=== PATIENT | male | born 1975 | race Caucasian/White ===

== ENCOUNTER 2018-08-06 17:20 | Day surgery (SDC) | payer OTHER, SELFPAY ==
[2018-08-06] VITALS (9 sets, daily range): BP systolic 116–131; BP diastolic 71–93; PULSE 80–98; RESP 14–17; TEMP 36.3–36.9; O2SAT 95–99; BMI 32.6; BMI 32.7
--- NOTE | 2018-08-06 17:40 | CT_ITS ---
STUDY: CT ABDOMEN AND PELVIS WITH CONTRAST REASON FOR EXAM: Male, 43 years old. Right lower quadrant pain. RADIATION DOSAGE (If Supplied By Facility): CTDIvol = ( 17.80 ) mGy, DLP = ( 1233.06 ) mGycm TECHNIQUE: Transaxial images were obtained from the dome of the diaphragm to the symphysis pubis without oral contrast. 100ML ml of Isovue 300 contrast was administered. Sagittal and coronal images were reconstructed. Individualized dose optimization techniques were used for this CT. COMPARISON: February 19, 2005 FINDINGS: The visualized lung bases are unremarkable. The visualized portions of the heart are within normal limits. Normal liver. Normal gallbladder and extrahepatic biliary system. Normal spleen. Normal pancreas. Normal bilateral adrenal glands. Normal right kidney. Normal left kidney. Normal visualized stomach. Normal small intestine. Normal colon. There is a tubular, thick-walled appendix (>7mm), consistent with acute appendicitis. Normal abdominal aorta. Normal inferior vena cava. Normal retroperitoneum. Normal urinary bladder. Normal abdominal wall. Normal osseous structures. CT/Abdomen/Pelvis WITH Contrast IMPRESSION: Acute appendicitis. Electronically Signed: Shannan Lopez MD at 19:37 EST Tel , Service support ,
[2018-08-06] MEDS: 0.9% Normal Saline 1,000 ML 150 ML IV (17:50)
[2018-08-06 18:01] LABS: Absolute Lymphocyte Count 1.38 X10^3/ul (0.83-4.51); Absolute Neutrophil Count 4.8 X10^3/uL (2.0-7.7); Basophil# 0.01 X10^3/uL; Basophil% 0.1 % (0-1); Eosinophil# 0.07 X10^3/uL; Hematocrit 42.5 % (40-54); Hemoglobin 14.5 g/dl (13.0-16.5); Lymphocyte # 1.38 X10^3/ul (4.0); Lymphocyte % 19.1 % (19-41); Mean Corp Hgb Conc 34.1 g/gl (32-36); Mean Corpuscular Hgb 30.1 pg (27.0-32.0); Mean Corpuscular Volume 88.2 fL (80-94); Mean Platelet Vol. 8.9 fl (6.2-12.0); Monocyte# 0.97 X10^3/uL; Monocyte% 13.4 % (0-10); Neutrophil # 4.76 X10^3/uL (2.7-7.7); POSITIVE COUNT NO; POSITIVE DIFFERENTIAL NO; POSITIVE MORPHOLOGY NO; Platelet Count 160 K/mm3 (150-450); RBC Distribution Width CV 12.6 % (11.6-14.6); RBC Distribution Width SD 40.5 fl (35.1-43.9); Red Blood Count 4.82 M/mm3 (4.6-6.2); White Blood Count 7.2 K/mm3 (4.4-11.0)
[2018-08-06 18:21] LABS: Anion Gap 10 (5-15); BUN 23 mg/dL (7-18); BUN/Creat Ratio 21.7 RATIO (10-20); Calcium,Total 8.5 mg/dL (8.5-10.1); Chloride 106 mmol/L (98-107); Creatinine, Serum 1.06 mg/dL (0.70-1.30); EST Glomerular Filtration Rate 80 mL/min (>60); Est Glom Filt Rate - Afr Amer 97 mL/min (>60); Estimated Creatinine Clearance 85.14 ml/min; Glucose 87 mg/dL (74-106); Potassium 3.6 mmol/L (3.5-5.1); Sodium Level 138 mmol/L (136-145)
--- NOTE | 2018-08-06 18:30 | ED.DCSUM_ITS ---
- ER Visit Summary Date of Service: 08/06/18 Chief Complaint: Right lower quadrant pain History of Present Illness: The patient is a 43 M with generalized abdominal pain last evening that is now localized to the right lower quadrant. He had subjective mild fever today. No urinary symptoms. He reports feeling like he needed to have a bowel movement last night but was unable to. He was able to have 2 small bowel movements this morning. He denies any prior abdominal surgeries. Physical Examination: Vital signs unremarkable. Patient is afebrile. Head neck examination normal. Heart is regular rate and rhythm. Lungs sounds are clear. Abdomen is soft with tenderness in the right lower quadrant. No guarding or rebound. Hypoactive bowel sounds noted. Test Results: CBC and chemistry studies are significant only for BUN of 23. Urinalysis is remarkable only for ketones. CT abdomen pelvis with contrast reveals acute appendicitis. Emergency Department Course and Treatment: Patient is given IV fluids. He decli sylvain anything for pain at this time. Test results are discussed with patient and at bedside. He is given a dose of Zosyn. I spoke with Dr. Morris he will be in to see the patient. Treatment Plan: [] Disposition: Admit Impression: Acute appendicitis This note was generated with [employer] dictation software. It may contain incorrect words, spelling, and punctuation that were not noted in review of the chart prior to signing ED Disposition - Plan for ED Patient: Chief Complaint: Abd Pain Referrals: Leonidas Begum DO [Primary Care Provider] -
[2018-08-06 18:44] LABS: Bacteria 0 SEEN /hpf (None Seen); Mucous, Urine 0 SEEN /hpf (<or=2+); Red Blood Cells-Urine 0 SEEN /hpf (0-5); Squamous Epithelial Cells - UA 0 SEEN /hpf (0-5); White Blood Cells 0 SEEN /hpf (0-5)
[2018-08-06 18:54] LABS: Color, Urine Yellow (Yellow); Glucose, Dipstick Normal (Normal); Ketone-Dipstick 50 mg/dl (Negative); Leukocyte Esterase-Dipstick Negative /ul (Negative); Nitrite-Dipstick Negative (Negative); Occult Blood-Urine Negative /ul (Negative); Protein-Dipstick Negative (Negative); Urine Bilirubin Dipstick Negative (Negative); Urine Clarity Clear (Clear); Urine Urobilinogen Normal (Normal)
[2018-08-06 19:05] LABS: Transitional Epithelial - Ur 0-5 SEEN /hpf (0-5)
--- NOTE | 2018-08-06 20:20 | PCM.HP.STD ---
Problem List (1) Acute appendicitis Status: Acute Qualifiers: Acute appendicitis type: with localized peritonitis Appendicitis gangrene presence: without gangrene Appendicitis perforation presence: without perforation Appendicitis abscess presence: without abscess Qualified Code(s): K35.30 - Acute appendicitis with localized peritonitis, without perforation or gangrene History of Present Illness Date of Admission: 08/06/18 The patient is a 43 year old M who presented to the emergency department this afternoon. Abdominal pain started last night periumbilical that then localized to the right lower quadrant. He describes it is minor in nature increasing though. Worse pain when he is standing and coughing while he is standing mild when he is just lying down. He has had subjective fevers at home. He has had no urinary symptoms. He had 2 bowel movements this morning. Laboratory values showed normal white cell blood count normal urinalysis CAT scan of the abdomen was performed findings: Normal visualized stomach. Normal small intestine. Normal colon. There is a tubular, thick-walled appendix (>7mm), consistent with acute appendicitis. I been consulted for evaluation and treatment of acute appendicitis. Past Medical History Medical History: Medical History (Last Updated 08/06/18 @ 20:23 by Vince Morris MD) GERD (gastroesophageal reflux disease) K21.9 Allergies No Known Allergies Allergy (Verified 08/06/18 17:20) Home Medications: Ambulatory Orders Medication Instructions Recorded Cetirizine HCl [Zyrtec] 10 mg PO DAILY 08/06/18 Esomeprazole Mag Trihydrate 20 mg PO DAILY 08/06/18 [Nexium] Psyllium Husk (with Sugar) 575 gm PO MOTUWETHFR 08/06/18 [Metamucil Powder] Smoking Status: Never smoker - *Family History Maternal History Items: No pertinent history Review of Systems Constitutional: Reports: Chills, Fever Cardiovascular: Denies: Chest Pain, Chest Pressure, Chest Tightness, Palpitations Respiratory: Denies: Cough, Hemoptysis, Shortness of breath at rest, Shortness of breath upon exertion, Wheezing Gastrointestinal: Reports: Abdominal Pain. Denies: Diarrhea, Nausea, Vomiting Genitourinary: Denies: Dysuria, Frequency, Hematuria, Urgency Musculoskeletal: Denies: Joint Pain Psychiatric: Denies: Anxiety, Depression Endocrine: Denies: Heat/ Cold Intolerance, Polydipsia, Polyuria Hematologic/ Lymphatic: Denies: Adenopathy, Easy Bruising VTE Information - Inpt Only VTE Present on Admission: No VTE Mechan Device Prophylaxis: SCD's VTE Pharm Prophylaxis ordered?: No Reason prophylaxis not ordered:: Treatment Not Indicated Patient Problems: Active and Suspected Problems Acute appendicitis (Acute) - Physical Exam General: Alert, Oriented x3 HEENT: Atraumatic, PERRLA, EOMI, Normocephalic Neck: Supple, No JVD Lungs: Clear to auscultation Cardiovascular: Regular rate, Regular Rhythm, No murmurs Abdomen: Soft, Tender - Patient has tenderness in the right lower quadrant with minor rebound. He has a negative Rovsing sign Extremities: No clubbing, No cyanosis, No edema Skin: No rashes, No breakdown Musculoskeletal: No Tenderness to Palpation of Joints or Extremities Vital Signs Temp Pulse Resp BP Pulse Ox 98.3 F 80 16 122/85 H 98 08/06/18 20:03 08/06/18 20:03 08/06/18 20:03 08/06/18 20:03 08/06/18 20:03 Oxygen Delivery Method Room Air Weight: 215 lb Body Mass Index (BMI) 32.6 Laboratory Tests Past 24 Hrs 08/06/18 08/06/18 08/06/18 17:50 17:50 18:35 WBC 7.2 RBC 4.82 Hgb 14.5 Hct 42.5 MCV 88.2 MCH 30.1 MCHC 34.1 RDW 12.6 RDW Differential 40.5 Plt Count 160 MPV 8.9 Immature Gran % (Auto) 0.400 Neut % (Auto) 66.0 Lymph % (Auto) 19.1 [place] % (Auto) 13.4 H Eos % (Auto) 1.0 Baso % (Auto) 0.1 Absolute Neuts (auto) 4.8 Absolute Lymphs (auto) 1.38 Total Counted Not Reportable Sodium 138 Potassium 3.6 Chloride 106 Carbon Dioxide 22.0 Anion Gap 10 BUN 23 H Creatinine 1.06 Estim Creat Clear Calc 85.14 Est GFR (MDRD) Af Amer 97 Est GFR (MDRD) Non-Af 80 BUN/Creatinine Ratio 21.7 H Glucose 87 Calcium 8.5 Urine Color Yellow Urine Clarity Clear Urine pH 6.0 Ur Specific [place] 1.020 Urine Protein Negative Urine Glucose (UA) Normal Urine Ketones 50 H Urine Occult Blood Negative Urine Nitrite Negative Urine Bilirubin Negative Urine Urobilinogen Normal Ur Leukocyte Esterase Negative Urine RBC 0 SEEN Urine WBC 0 SEEN Ur Squamous Epith Cells 0 SEEN Ur Transition Epith Cell 0-5 SEEN Urine Bacteria 0 SEEN Urine Mucus 0 SEEN Assessment/Plan All Active Problems Acute appendicitis (Acute) My plan is to perform a laparoscopic appendectomy on the patient. Risk and benefits were reviewed with him as well as the nurses that were in the room. Bleeding infection was obviously the 2 largest one injury to surrounding structures and possible delayed abscesses were also discussed. We briefly touched upon anesthetic risks to include blood clots heart attacks pneumonias and strokes. All questions asked were answered. He is willing to proceed.
--- NOTE | 2018-08-06 21:35 | OP.PCM_ITS ---
Problem List (1) Acute appendicitis Status: Acute Qualifiers: Acute appendicitis type: with localized peritonitis Appendicitis gangrene presence: without gangrene Appendicitis perforation presence: without perforation Appendicitis abscess presence: without abscess Qualified Code(s): K35.30 - Acute appendicitis with localized peritonitis, without perforation or gangrene Report of Operation Date of Procedure: 08/06/18 Pre-Operative Diagnosis: Acute appendicitis Post-Operative Diagnosis: Same Surgery/Procedure Performed:: Laparoscopic appendectomy Type of Anesthesia:: General Anesthesiologist: Price Queen Estimated Blood Loss (mL): < 25 cc Description of Procedure: Patient was brought into the operating room. Placed in the supine position. Under excellent general endotracheal intubation the abdomen was sterilely prepped and draped in the usual fashion. Local was injected infraumbilically. Dissection was carried down to the fascia. Fascia was grasped with [place]. Varies needle was placed inside the abdomen. The abdomen was insufflated to 15 torr. A 10/12 trocar was placed without difficulty. Patient was placed in the headdown and rotated to the left suprapubic #5 trocar was placed in the left lower quadrant #5 trocar was placed. Both of these under direct visualization without injury to underlying structures nor the bladder. Patient was noted to have a retrocecal appendix I had to mobilize the terminal ileum off of the sidewall of the pelvis. Once this was done I was able to grab the appendix and then come across the mesoappendix with the Enseal. I had good hemostasis. I then transected the appendix with a 45 linear cutter. I placed a specimen a specimen bag delivered through the umbilical port without difficulty. Once this was completed I reinflated the abdomen inspected the right lower quadrant and the base of the appendix and the mesoappendix I had good hemostasis and no active bleeding was identified. I retrieved all the irrigant in the right upper quadrant and in the pelvis area no pus was identified. I did not run the small bowel given the fact that he had acute appendicitis. I removed the trochars under direct visualization. Good hemostasis was noted I closed the fascia the umbilical port with a [id number] stitch of 0 Vicryl. Skin incisions were closed with subtalar stitches of 4-0 Monocryl. Steri-Strips are applied sterile dressings were applied and the patient tolerated the procedure well. - Admit VTE Documentation VTE Present on Admission: No VTE Mechan Device Prophylaxis: SCD's VTE Pharm Prophylaxis ordered?: No Reason prophylaxis not ordered:: Treatment Not Indicated
[2018-08-06] MEDS: Bupivacaine Mpf 0.5% 30 ML VIAL (21:48)
[2018-08-06] MEDS: Lactated Ringers 1,000 ML 125 ML IV (23:30)
--- NOTE | 2018-08-07 | APP_PTH ---
PATIENT: CAROLYN VÁSQUEZ Jr. [place] [facility] [place][id number] AGE/SX: 43/M ROOM: RE08/06/[address]: Dr. Vince Morris MD : 1975 BED: DIS: 08/07/2018 SPEC #: [id number] RECD: 08/07/18 13:05 STATUS: CHA TIGIST #: [id number] MARTÍNEZ: 08/07/18 00:[address]: Vince Morris DEPT: SURGICAL PATHOLOGY RECD BY: Javier Vazquez ENTERED: 08/07/18 13:05 SP TYPE: APPENDIX OTHR DR: Dr. Leonidas Begum DO Tissues: Appendix, NOS Procedures: Surgery Specimen Level III HEADER OPERATION: Laparoscopic appendectomy PRE-OP DIAGNOSIS: Acute appendicitis TISSUE SUBMITTED: Appendix MICROSCOPIC DIAGNOSIS Appendix, appendectomy: Acute appendicitis. Acute serositis. AM:ramonita 08/10/18 MICROSCOPIC DESCRIPTION Slides are reviewed. GROSS DESCRIPTION Received is one container labeled with the patient's name and designated appendix. The specimen consists of a vermiform appendix measuring 7 cm in length and 0.8 cm in average diameter. No gross perforations are evident. Serial sections reveal a patent lumen. Analytics Architect sections are submitted in one cassette. / AM:ramonita 08/07/18 TC:2 CPT: 10807
[2018-08-07] MEDS: HYDROmorphone 1 MG/ML Syringe IV (00:04)
[2018-08-07 01:29] VITALS: BP 124/71; PULSE 97; RESP 16; TEMP 36.6; O2SAT 96
[2018-08-07 03:21] VITALS: BP 116/67; PULSE 86; RESP 16; TEMP 36.6; O2SAT 95
[2018-08-07] MEDS: Piperacil/Tazobactam 3.375 GM/50 ML ML IV ×2 (05:37→14:28)
[2018-08-07] MEDS: HYDROcodone Bitartrate/Apap 5/325 Tablet PO ×2 (06:24→12:52)
[2018-08-07] MEDS: Lactated Ringers 1,000 ML 125 ML IV (07:11)
[2018-08-07 10:00] VITALS: BP 115/67; PULSE 79; RESP 18; TEMP 37.1; O2SAT 95
[2018-08-07 11:18] VITALS: O2SAT 96
--- NOTE | 2018-08-07 11:19 | CPS ---
STARTED BY NURSING
--- NOTE | 2018-08-07 13:08 | DCINST_ITS ---
Discharge Diet: Light diet - advance as tolerated - if you have questions about your diet instructions, please talk to you doctor. Discharge Activity: May Not Drive - for 3-5 days or while taking narcotic pain meds. May shower in (days): 1 Call your doctor if your incision/area has: Continuous Slow Oozing, Sudden Increased Bleeding, Increased Pain/ Swelling, Increased Redness, Foul Smelling Discharge Call your doctor if you observe: Fever of 101 or Higher Suture Line Care: Avoid Pulling/Pushing, Avoid Pinching/Bending Additional Dressing/Incision Instructions:: Keep dressing clean and dry. Change or remove dressing in 2 days. Leave steri strips for 1 week. May protect with a gauze bandaid. Medications to take at Discharge Cetirizine HCl [Zyrtec] 10 mg PO DAILY 08/06/18 Esomeprazole Mag Trihydrate [Nexium] 20 mg PO DAILY 08/06/18 Guaifenesin [Mucinex] 600 mg PO DAILY 08/06/18 Psyllium Husk (with Sugar) [Metamucil Powder] 575 gm PO MOTUWETHFR 08/06/18 Allergies/Adverse Reactions: Allergies No Known Allergies Allergy (Verified 08/06/18 17:20) Primary Care Physician: Leonidas Begum DO [Primary Care Provider] - Test Results: Test results from this visit will be discussed in further detail at your follow- up appointment, if applicable. Please Follow Up With: Vince Morris MD - [phone] When: Call to make a follow up appointment with your doctor in 1 week.
--- NOTE | 2018-08-07 13:09 | PCM.PN.SRG ---
Patient Problems: Active and Suspected Problems (Last Updated 08/06/18 @ 20:23 by Vince Morris MD) Acute appendicitis (Acute) Subjective: Pain is controlled with oral pain medication. He is not complaining of the same abdominal pain only incisional pain at this time. Objective: Dressings are dry. Abdomen is soft. - Physical Exam Vital Signs Temp Pulse Resp BP Pulse Ox 98.7 F 79 18 115/67 96 08/07/18 10:00 08/07/18 10:00 08/07/18 10:00 08/07/18 10:00 08/07/18 11:18 Oxygen Delivery Method Room Air Weight: 215 lb Body Mass Index (BMI) 32.6 Intake and Output for Last 24 Hours 08/05/18 08/06/18 08/07/18 23:59 23:59 23:59 Intake Total 850 / 850 995 / 995 Output Total 1200 / 1200 Balance 850 / 850 -205 / -205 Laboratory Tests Past 24 Hrs 08/06/18 08/06/18 08/06/18 17:50 17:50 18:35 WBC 7.2 RBC 4.82 Hgb 14.5 Hct 42.5 MCV 88.2 MCH 30.1 MCHC 34.1 RDW 12.6 RDW Differential 40.5 Plt Count 160 MPV 8.9 Immature Gran % (Auto) 0.400 Neut % (Auto) 66.0 Lymph % (Auto) 19.1 [place] % (Auto) 13.4 H Eos % (Auto) 1.0 Baso % (Auto) 0.1 Absolute Neuts (auto) 4.8 Absolute Lymphs (auto) 1.38 Total Counted Not Reportable Sodium 138 Potassium 3.6 Chloride 106 Carbon Dioxide 22.0 Anion Gap 10 BUN 23 H Creatinine 1.06 Estim Creat Clear Calc 85.14 Est GFR (MDRD) Af Amer 97 Est GFR (MDRD) Non-Af 80 BUN/Creatinine Ratio 21.7 H Glucose 87 Calcium 8.5 Urine Color Yellow Urine Clarity Clear Urine pH 6.0 Ur Specific [place] 1.020 Urine Protein Negative Urine Glucose (UA) Normal Urine Ketones 50 H Urine Occult Blood Negative Urine Nitrite Negative Urine Bilirubin Negative Urine Urobilinogen Normal Ur Leukocyte Esterase Negative Urine RBC 0 SEEN Urine WBC 0 SEEN Ur Squamous Epith Cells 0 SEEN Ur Transition Epith Cell 0-5 SEEN Urine Bacteria 0 SEEN Urine Mucus 0 SEEN Medical Necessity - Tobacco Use Smoking Status: Former smoker Assessment/Plan All Active Problems (Last Updated 08/06/18 @ 20:23 by Vince Morris MD) Acute appendicitis (Acute) My plan is to discharge the patient home today
[2018-08-07 15:15] VITALS: BP 119/77; PULSE 78; RESP 16; TEMP 36.9; O2SAT 93
== END 2018-08-07 15:51 | disposition home or self-care (01) ==
LOC: ED 18:30 → SDC 20:12 → MS3 20:18
PROVIDERS: Emergency Provider Emergency Medicine; Family Provider Family Medicine; PCP Family Medicine; Referring Provider Surgery; Visit Provider Surgery
PROC: 0DTJ4ZZ Resection of Appendix, Percutaneous Endoscopic Approach (ICD-10-PCS; CPT 44970; principal; 2018-08-06 21:30)
DX: K35.33 Acute appendicitis with perforation, localized peritonitis, and gangrene, with abscess (principal); K21.9 Gastro-esophageal reflux disease without esophagitis
CPT/HCPCS: 44970; 74177; 80048; 81001; 85025; 88304; 97802; 99284; J7030; J7120; Q9967; C1760; J2405

== ENCOUNTER → 2019-10-18 09:43 | Outpatient (CLI) | payer OTHER, SELFPAY ==
[2018-08-06 23:14] VITALS: BMI 32.6
[2019-10-18 12:56] LABS: Absolute Neutrophil Count 3.4 X10^3/uL (2.0-7.7); Basophil# 0.02 X10^3/uL; Basophil% 0.4 % (0-1); Eosinophil# 0.06 X10^3/uL; Eosinophils% 1.1 % (0-5); Hematocrit 47.8 % (40-54); Hemoglobin 17.3 g/dL (13.0-16.5); Lymphocyte % 28.5 % (19-41); Mean Corp Hgb Conc 36.2 g/dL (32-36); Mean Corpuscular Hgb 32.1 pg (27.0-32.0); Mean Corpuscular Volume 88.7 fL (80-94); Mean Platelet Vol. 9.9 fl (6.2-12.0); Monocyte# 0.53 X10^3/uL; Monocyte% 9.4 % (0-10); NRBC Flagged by Analyzer 0 % (0-5); Neutrophil # 3.39 X10^3/uL (2.7-7.7); Neutrophil % 60.2 % (47-70); Platelet Count 279 K/mm3 (150-450); RBC Distribution Width SD 38.5 fl (35.1-43.9); Red Blood Count 5.39 M/mm3 (4.6-6.2); White Blood Count 5.6 K/mm3 (4.4-11.0)
[2019-10-18 13:27] LABS: ALB/GLOB Ratio 1.6 RATIO (0.9-2.4); AST(SGOT) 18 U/L (15-37); Alanine Aminotransfer ALT/SGPT 37 U/L (16-61); Albumin, Serum 4.1 g/dL (3.2-5.0); Alkaline Phosphatase 45 U/L (45-117); Anion Gap 4 (5-15); BUN 13 mg/dL (7-18); BUN/Creat Ratio 14.6 RATIO (10-20); Calcium,Total 9.2 mg/dL (8.5-10.1); Chloride 108 mmol/L (98-107); Cholesterol 180 mg/dL (200); Creatinine, Serum 0.89 mg/dL (0.70-1.30); EST Glomerular Filtration Rate 97 mL/min (>60); Est Glom Filt Rate - Afr Amer 118 mL/min (>60); Globulin 2.5 g/dL (2.2-4.2); Glucose 90 mg/dL (74-106); High Density Lipoprotein 34 mg/dL; Potassium 3.8 mmol/L (3.5-5.1); Protein, Total 6.6 g/dL (6.4-8.2); Sodium Level 139 mmol/L (136-145); Triglycerides 221 mg/dL; Very Low Density Lipoprotein 44 mg/dL (5-40)
== END ==
PROVIDERS: PCP Student in an Organized Health Care Education/Training Program; Referring Provider Student in an Organized Health Care Education/Training Program; Visit Provider Student in an Organized Health Care Education/Training Program
DX: E66.9 Obesity, unspecified (principal)
CPT/HCPCS: 36415; 80053; 80061; 85025

== ENCOUNTER 2021-12-14 21:54 | Observation (INO) | payer OTHER, SELFPAY ==
[2021-12-14 21:54] VITALS: BP 105/84; PULSE 123; RESP 16; TEMP 36.4; O2SAT 99; BMI 34.2
--- NOTE | 2021-12-14 22:06 | EKG12_ITS ---
Test Reason : CP Blood Pressure : / mmHG Vent. Rate : 111 BPM Atrial Rate : 111 BPM P-R Int : 144 ms QRS Dur : 080 ms QT Int : 324 ms P-R-T Axes : 044 033 017 degrees QTc Int : 440 ms Sinus tachycardia Otherwise normal ECG Confirmed by JAZIEL COON, DAHLIA ([id number]), managing editor JEISON OLIVEIRA ([id number]) on 12/17/2021 10:07:51 A M Referred By: PRATEEK Confirmed By:LOPEZ SHERIFF MD
[2021-12-14] MEDS: Aspirin 81 MG TAB.CHEW 324 MG PO (22:12)
--- NOTE | 2021-12-14 22:12 | RAD_ITS ---
STUDY: X-RAY CHEST REASON FOR EXAM: Male, 46 years old. chest pain TECHNIQUE: Single AP portable view of the chest. COMPARISON: None. FINDINGS: The lungs are clear and expanded. There is no demonstrated pleural abnormality. Normal size heart. Normal mediastinum and stefan. Normal visualized pulmonary arteries. Normal visualized aortic arch and descending thoracic aorta. Normal visualized thoracic spine. Normal visualized ribs, clavicles, and shoulders. There is no demonstrated abnormality of the visualized soft tissue structures of the upper abdomen. RAD/Chest 1 View (Portable) IMPRESSION: Normal x-ray examination of the chest. Electronically Signed: Lavell Rankin MD at 22:39 EDT ,
[2021-12-14 22:14] VITALS: O2SAT 98
[2021-12-14 22:27] LABS: Absolute Lymphocyte Count 1.35 X10^3/uL (0.83-4.51); Absolute Neutrophil Count 3.6 X10^3/uL (2.0-7.7); Basophil# 0.02 X10^3/uL; Basophil% 0.4 % (0-1); Eosinophil# 0.06 X10^3/uL; Eosinophils% 1.1 % (0-5); Hemoglobin 10.9 g/dL (13.0-16.5); Lymphocyte # 1.35 X10^3/ul (0.83-4.51); Lymphocyte % 23.7 % (19-41); Mean Corp Hgb Conc 35.2 g/dL (32-36); Mean Corpuscular Volume 88.1 fL (80-94); Mean Platelet Vol. 8.8 fl (6.2-12.0); Monocyte# 0.62 X10^3/uL; Monocyte% 10.9 % (0-10); NRBC Flagged by Analyzer 0 % (0-5); Neutrophil # 3.61 X10^3/uL (2.7-7.7); Neutrophil % 63.4 % (47-70); Platelet Count 167 K/mm3 (150-450); RBC Distribution Width CV 12.2 % (11.6-14.6); Red Blood Count 3.52 M/mm3 (4.6-6.2); White Blood Count 5.7 K/mm3 (4.4-11.0)
--- NOTE | 2021-12-14 22:37 | EDS_ITS ---
HPI History of Present Illness Chief Complaint: Chest Pain Informant: patient Onset/Context/Timing Onset: Today Activity at onset: sudden Timing: Intermittent Quality: Positive for Heaviness and Pressure Location: Left Chest Current Severity: Gone Maximum Severity: Moderate Worsened By: Exertion Relieved By: Rest Associated Symptoms: Positive for Dyspnea and Lightheadedness Narrative Narrative: 46-year-old male no seen past medical history. 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 Today in the morning really just at a program he really was not exertional he had some upper chest discomfort that resolved. Then in the evening they were putting weight chairs aspirin exertionally got upper chest pain is central in his left chest. He describes it as heaviness. He got lightheaded and short of breath with it. He has had to sit down and when he rested it went away. Currently he is pain-free. He has no known cardiac disease. He quit smoking 20 years ago. He has no family history. He has never had a DVT or PE and no risk factors. Not pleuritic pain. Has had no hemoptysis. There is no leg pain or swelling. Prior Similar Symptoms: No Recent Illness/Hospitalization: No CVD Risk Factors: Negative for Hypertension, Diabetes, Hypercholesterolemia and Family History 1' </=55 PE Risk Factors: Negative for Recent Travel/Surgery, Recent Immobilization, Prior DVT or PE, Cancer and OCP + Smoking + >/=35 TAD Risk Factors: Negative for Marfan's Syndrome and Hypertension [facility] Medical History GERD (gastroesophageal reflux disease) Seasonal allergies Home Medications cetirizine 10 mg PO DAILY 08/06/18 [History Last Taken 08/06/18 05:30] esomeprazole magnesium 20 mg PO DAILY 08/06/18 [History Last Taken 08/06/18 05:30] magnesium 250 mg tablet 250 mg PO DAILY 08/13/18 [History Last Taken Unknown] Allergy/AdvReac Type Severity Reaction Status Date / Time No Known Allergies Allergy Verified 12/14/21 21:56 Family History Grandfather Cancer esophageal Diabetes Grandmother Diabetes Surgical History History of appendectomy (~07/2018) History of fracture of forearm History of tonsillectomy Social History Smoking Status: Never smoker ROS ROS ED ROS Narrative Chest pain. Shortness of breath. Review of Systems ROS Unobtainable: Denies due to encephalopathy Constitutional Constitutional ED: Denies fever(s) Eyes Eyes: Denies none ENT ENT ED: Denies ear pain Cardiovascular Cardiovascular: Reports as per HPI and chest pain; Denies palpitations or racing heartbeat Respiratory/Chest Respiratory/Chest: Reports dyspnea; Denies cough or sputum Gastrointestinal Gastrointestinal: Denies abdominal pain, constipation, diarrhea, nausea or vomiting Genitourinary Genitourinary ED: Denies dysuria Musculoskeletal Musculoskeletal: Denies myalgias Integumentary Denies rash Neurologic Neurologic: Denies headache(s) Psychiatric Psychiatric: Denies depression Endocrine Endocrinology: Denies polyuria Hematologic/Lymphatic Hematologic/Lymphatic: Denies easy bruising Allergic/Immunologic Allergic/Immunologic ED: Denies urticaria EXAM Physical Exam Narrative Exam Narrative: Noise male no acute distress. Vital signs stable. Pulse ox 9 9% on room air no signs hypoxia. H EENT exam normal. Neck nontender no JVD. Lungs clear to auscultation bilaterally. Heart regular rhythm rate about 110 no murmur. Chest wall nontender. Abdomen soft nontender. Moving all 4 extremities. Calves nontender without edema or cords. Equal symmetrical radial pulses. Back and neurologic exam unremarkable. Const Vital Signs: 12/14/21 21:54 12/14/21 22:14 Temperature 97.6 F L Temperature Source Temporal Pulse Rate 123 H Respiratory Rate 16 Blood Pressure 105/84 H Blood Pressure Mean 91 Pulse Ox 99 98 Oxygen Delivery Method Room Air Room Air Positive well nourished, well developed and obese; Negative for cachectic, contractures or unkempt General Appearance ED: well developed and NAD; Negative for unkempt, cachectic, contractures or pallor Nutritional Appearance: obese; Negative for cachectic HEENT Reports moist mucous membranes normocephalic and atraumatic; Negative for trauma or tenderness Eyes PERRL and EOMs intact bilaterally General Eye ED: Negative for pale conjunctiva or scleral icterus Neck no lymphadenopathy, supple and no JVD General: Negative for tenderness Chest Wall inspection of chest normal and palpation of chest normal Chest: Negative for tenderness Resp normal respiratory effort and clear to auscultation bilaterally Effort and Inspection: respiratory distress Auscultation: Negative for rales, rhonchi or wheezes Cardio regular rate, regular rhythm, S1 normal heart sound, S2 normal heart sound and no murmurs Rate: Negative for bradycardia or tachycardic Rhythm: Negative for abnormal rhythm GI normal to inspection, nondistended, normoactive bowel sounds, soft to palpation, non-tender, non-distended and no masses; Negative for hepatosplenomegaly Auscultation: Negative for hyperactive bowel sounds Palpation: Negative for splenomegaly or mass Back/Spine no CVA tenderness and no thoracic nor lumbar tenderness General Back: Negative for CVA tenderness Cervical Spine: Negative for cervical spine tenderness Extremity normal to inspection General Extremety ED: Negative for edema, pulses abnormal or tenderness General Extremity: Negative for edema or pulses abnormal Neuro oriented x3 Sensorium / Orientation: awake, alert, oriented to person, oriented to place and oriented to time Motor Exam: strength 5/5 throughout Psych mental status grossly normal Appearance: Negative for unkempt Attitude: No agitated Mood & Affect: Negative for depressed or tearful Skin no rashes or lesions noted and no wounds General Skin Exam: Negative for jaundice or pallor Heart Score History: Moderately Suspicious ECG: Normal Age: >45 - <65 years Risk Factors: No Risk Factors Troponin: >1 - <3 Normal Limit Score: 3 MDM MDM MDM Narrative Medical decision making narrative: 46-year-old male with a concerning story for chest pain. Nursing and past medical history. Exam benign. Pain not reproducible. No risk factors for DVT or PE. Undergo cardiac work-up. I do think he needs admission for further evaluation. Lab Data Attestation: I reviewed the patient's lab results. Lab results narrative: CBC shows white count 5.7. H&H of 10.9 and 31. Platelets of 167. Previously his hemoglobins were normal to above normal. To 10.9 is definitely anemic for him. Chemistries unremarkable gap at 9 BUN 25 creatinine 1.3. Glucose 78. First troponin is elevated at 104. I have gone over all test results with the patient and his . I have the hospitalist on page for admission. Labs: Laboratory Results - last 24 hr 12/14/21 12/14/21 22:13 22:13 WBC 5.7 RBC 3.52 L Hgb 10.9 L Hct 31.0 L MCV 88.1 MCH 31.0 MCHC 35.2 RDW Std Deviation 39.0 RDW Coeff of Radha 12.2 Plt Count 167 MPV 8.8 Immature Gran % (Auto) 0.500 Neut % (Auto) 63.4 Lymph % (Auto) 23.7 [place] % (Auto) 10.9 H Eos % (Auto) 1.1 Baso % (Auto) 0.4 Absolute Neuts (auto) 3.6 Absolute Lymphs (auto) 1.35 Nucleated RBC % 0 Sodium 141 Potassium 3.6 Chloride 107 Carbon Dioxide 25.0 Anion Gap 9 BUN 25 H Creatinine 1.30 Estim Creat Clear Calc 67.23 Est GFR (MDRD) Af Amer 76 Est GFR (MDRD) Non-Af 63 BUN/Creatinine Ratio 19.2 Glucose 78 Calcium 9.3 Troponin I High Sens 104 H Radiography Chest X-Ray - ED: 1 View, Read by ED Physician, Read by Radiologist, Heart, Lungs, Mediastinum, Bony Structures, No Acute Disease and Chronic Changes Diagnostic Testing: Clinical Impression(s) from Imaging Studies Chest X-Ray 12/14/21 22:12 IMPRESSION: Normal x-ray examination of the chest. Electronically Signed: Lavell Rankin MD at 22:39 EDT , Rhythm Strip Rhythm Strip: Sinus Tach Rate: 111 Ectopy: None EKG Initial EKG: Attestation: I personally reviewed and interpreted this EKG as follows: Interpretation: Sinus Rhythm, No Acute Injury Pattern and Sinus Tachycardia Comments: Sinus tachycardia rate of 111 no acute signs of LA or ischemia. And Prior EKG tracings: not available for review Discharge Plan Dx/Rx/DC Orders Clinical Impression: Chest pain Disposition Disposition: Acute Care [facility]
[2021-12-14 22:47] LABS: Anion Gap 9 (5-15); BUN 25 mg/dL (7-18); BUN/Creat Ratio 19.2 RATIO (10-20); Calcium,Total 9.3 mg/dL (8.5-10.1); Chloride 107 mmol/L (98-107); EST Glomerular Filtration Rate 63 mL/min (>60); Est Glom Filt Rate - Afr Amer 76 mL/min (>60); Estimated Creatinine Clearance 67.23 ml/min; Glucose 78 mg/dL (74-106); Potassium 3.6 mmol/L (3.5-5.1); Sodium Level 141 mmol/L (136-145); Troponin-I HS (w/2H Reflex) 104 pg/mL (3.0-78.0)
[2021-12-14 23:07] VITALS: BP 125/86; PULSE 97; RESP 15; O2SAT 97
[2021-12-14 23:10] VITALS: BP 125/86; PULSE 102; RESP 15; TEMP 36.7; O2SAT 96
--- NOTE | 2021-12-14 23:36 | HP.PCM.HOS_ITS ---
HPI - General General Date of Admission: 12/14/21 Date of Service: 12/14/21 Chief Complaint: Chest pain HPI Narrative CAROLYN VÁSQUEZ, is a 46 M who presents to the emergency room at [facility] with a chief complaint of 2 episodes of chest pain today, the first episode of chest pain was when he was working and moving chairs, he describes the chest pain as tightness across his upper chest, it also had somewhat of a sharp component. There is no radiation to the neck or down the arms, he states that the first episode went away after 20 minutes on its own, he had a second episode today and when he returned home, his asked him to come to the hospital for evaluation. Patient denies any history of previous coronary artery disease, hypertension, type 2 diabetes or heart disease. Work-up in the emergency room included lab, CBC was remarkable for hemoglobin of 10.9, patient's CHEM panel was remarkable for a creatinine of 1.3, BUN was 25, and the patient's troponin was 104. Patient's chest x-ray showed no abnorma lities, EKG showed a sinus tachycardia at 111 without evidence of ischemic changes. Patient will be placed in observation status on PCU, cardiac enzymes will be cycled, he will be placed on an enteric-coated aspirin daily, Lipitor daily, and metoprolol 12.5 mg twice daily. He will be seen in consultation by cardiology, I talked briefly with Dr. Fisher about his care today and he stated that more than likely he would not do a catheterization this weekend if the patient remained stable. The catheterization will be put off till Friday. Patient will have an echocardiogram performed tomorrow. I went over his treatment plan with him and his who was in the room at the time of my examination [facility] Medical History GERD (gastroesophageal reflux disease) Seasonal allergies Home Medications cetirizine [Zyrtec] 10 mg PO DAILY 08/06/18 [History Last Taken 08/06/18 05:30] esomeprazole magnesium [Nexium] 20 mg PO DAILY 08/06/18 [History Last Taken 08/06/18 05:30] magnesium 250 mg tablet 250 mg PO DAILY 08/13/18 [History Last Taken Unknown] Allergy/AdvReac Type Severity Reaction Status Date / Time No Known Allergies Allergy Verified 12/14/21 21:56 Family History Grandfather Cancer esophageal Diabetes Grandmother Diabetes Surgical History History of appendectomy (~07/2018) History of fracture of forearm History of tonsillectomy Social History Smoking Status: Never smoker ROS Constitutional Constitutional: Denies anorexia, change in weight, fever(s), night sweats or weakness Eyes Eyes: Denies blurry vision, change in vision, discharge from eye(s) or eye pain Cardiovascular Cardiovascular: Reports chest pain; Denies claudication, dyspnea on exertion, edema, lightheadedness, palpitations or rapid heart rate Respiratory/Chest Respiratory/Chest: Denies cough, dyspnea, hemoptysis, productive cough, shortness of breath at rest or shortness of breath with exertion Gastrointestinal Gastrointestinal: Denies abdominal pain, constipation, diarrhea, hematemesis, hematochezia, melena, nausea or vomiting Genitourinary Genitourinary: Denies dysuria, hematuria, urinary frequency, urinary hesitancy, urinary incontinence or urinary urgency Musculoskeletal Musculoskeletal: Denies back pain, joint pain, joint stiffness, joint swelling, myalgias or neck pain Neurologic Neurologic: Denies abnormal gait, abnormal speech, dizziness, focal weakness, headache(s), loss of vision, numbness, other visual disturbances, paresthesias, syncope or tingling Psychiatric Psychiatric: Denies anxiety, cognitive impairment, depression, irritability, mood swings or suicidal ideation Endocrine Endocrinology: Denies change in body appearance, cold intolerance, excessive sweating, heat intolerance, polydipsia or polyuria Hematologic/Lymphatic Hematologic/Lymphatic: Denies none, anemia, easy bleeding, easy bruising or lymphadenopathy Allergic/Immunologic Allergic/Immunologic: Denies rhinitis, urticaria, eczemia or asthma Vital Signs Vital Signs Vital Signs: 12/14/21 21:54 12/14/21 22:14 12/14/21 23:07 Temperature 97.6 F L Temperature Source Temporal Pulse Rate 123 H 97 Respiratory Rate 16 15 Blood Pressure 105/84 H 125/86 H Blood Pressure Mean 91 99 Pulse Ox 99 98 97 Oxygen Delivery Method Room Air Room Air Room Air 12/14/21 23:10 Temperature 98.0 F Temperature Source Temporal Pulse Rate 102 H Respiratory Rate 15 Blood Pressure 125/86 H Blood Pressure Mean 99 Pulse Ox 96 Oxygen Delivery Method Room Air Weight Weight: 102.058 kg Body Mass Index (BMI) 34.2 Physical Exam Const alert, oriented x3, no apparent distress, healthy appearing and well nourished General Appearance: cooperative, well kempt and well developed Orientation / Consciousness: awake, oriented to person, oriented to place and oriented to time HEENT normocephalic and moist oral mucous membranes Eyes PERRL, EOMs intact bilaterally and conjunctivae normal Neck nuchal rigidity, supple, no JVD, thyroid normal and no carotid bruits General: trachea midline Resp normal respiratory effort, no retractions, no use of accessory muscles and clear to auscultation bilaterally Auscultation: Negative for rales, rhonchi or wheezes Cardio regular rate, regular rhythm, S1 normal heart sound, S2 normal heart sound, no murmurs, no rub and no gallops GI normal to inspection, nondistended, normoactive bowel sounds, soft to palpation, non-tender and non-distended Extremity no clubbing, cyanosis or edema Skin no rashes or lesions noted General Skin Exam: no breakdown Neuro oriented x3, CN's II-XII intact bilaterally, no focal motor deficits and no sensory deficits noted Sensorium / Orientation: awake and alert Speech: speech normal Psych affect normal Results Lab / Micro Data Result Diagrams: 12/14/21 22:13 12/14/21 22:13 Labs: Laboratory Results - last 24 hr 12/14/21 22:13: WBC 5.7, RBC 3.52 L, Hgb 10.9 L, Hct 31.0 L, MCV 88.1, MCH 31.0, MCHC 35.2, RDW Std Deviation 39.0, RDW Coeff of Radha 12.2, Plt Count 167, MPV 8.8, Immature Gran % (Auto) 0.500, Neut % (Auto) 63.4, Lymph % (Auto) 23.7, [place] % (Auto) 10.9 H, Eos % (Auto) 1.1, Baso % (Auto) 0.4, Absolute Neuts (auto) 3.6, Absolute Lymphs (auto) 1.35, Nucleated RBC % 0 12/14/21 22:13: Sodium 141, Potassium 3.6, Chloride 107, Carbon Dioxide 25.0, Anion Gap 9, BUN 25 H, Creatinine 1.30, Estim Creat Clear Calc 67.23, Est GFR (MDRD) Af Amer 76, Est GFR (MDRD) Non-Af 63, BUN/Creatinine Ratio 19.2, Glucose 78, Calcium 9.3, Troponin I High Sens 104 H Rhythm Strip Rhythm Strip: Sinus Tach Rate: 111 Ectopy: None Radiology Impression Chest X-Ray 12/14/21 22:12 IMPRESSION: Normal x-ray examination of the chest. Electronically Signed: Lavell Rankin MD at 22:39 EDT , Assessment & Plan Assessment/Plan (1) Chest pain: PLAN: 1. [id number]'s troponin is slightly elevated, his narrative concerns me for angina, patient will be placed in observation status on PCU, he will have serial cardiac enzymes drawn, patient will have an echocardiogram tomorrow, he will be monitored on telemetry, he will be seen by cardiology, he will be placed on enteric-coated aspirin a day and Lipitor. Lipid profile will be obtained in the morning. Patient had concerns about staying in the hospital all weekend long and I told him it would be up to him to make the decision whether to stay until Friday to have a heart catheterization versus go home on medication-he will have to discuss this with cardiology and with the attending hospitalist in the morning. #2 anemia-etiology unclear, iron studies will be drawn on the patient, he denies any melena, hematochezia, or hematemesis. Patient does take Advil occasionally for pain but does not take any aspirins on a daily basis. #3 GERD-patient takes Nexium daily Charges/Coding Visit Charges OBSV E&M: 26160 Initial observation care L3
[2021-12-15] VITALS (17 sets, daily range): BP systolic 101–139; BP diastolic 62–96; PULSE 69–106; RESP 16–18; TEMP 36.3–37.1; O2SAT 95–100; BMI 35.2
[2021-12-15 00:19] LABS: Reflex Troponin-HS? (from REC) Y
[2021-12-15] MEDS: Metoprolol Tartrate 25 MG Tablet 12.5 MG PO ×2 (00:42→09:18)
[2021-12-15 01:33] LABS: Troponin-I HS 162 pg/mL (3.0-78.0)
[2021-12-15 04:49] LABS: Absolute Lymphocyte Count 1.95 X10^3/uL (0.83-4.51); Absolute Neutrophil Count 4.3 X10^3/uL (2.0-7.7); Basophil# 0.02 X10^3/uL; Basophil% 0.3 % (0-1); Eosinophil# 0.11 X10^3/uL; Eosinophils% 1.5 % (0-5); Hematocrit 42.8 % (40-54); Hemoglobin 15.1 g/dL (13.0-16.5); Lymphocyte # 1.95 X10^3/ul (0.83-4.51); Mean Corp Hgb Conc 35.3 g/dL (32-36); Mean Corpuscular Hgb 30.8 pg (27.0-32.0); Mean Corpuscular Volume 87.2 fL (80-94); Mean Platelet Vol. 8.7 fl (6.2-12.0); Monocyte# 0.77 X10^3/uL; Monocyte% 10.7 % (0-10); NRBC Flagged by Analyzer 0 % (0-5); Neutrophil # 4.32 X10^3/uL (2.7-7.7); Neutrophil % 59.8 % (47-70); Platelet Count 212 K/mm3 (150-450); RBC Distribution Width CV 12.5 % (11.6-14.6); RBC Distribution Width SD 39.6 fl (35.1-43.9); Red Blood Count 4.91 M/mm3 (4.6-6.2); White Blood Count 7.2 K/mm3 (4.4-11.0)
[2021-12-15] MEDS: 0.9% Saline Lock 10 ML Syringe IV (04:54)
--- NOTE | 2021-12-15 05:10 | EKG12_ITS ---
Test Reason : CP Blood Pressure : / mmHG Vent. Rate : 094 BPM Atrial Rate : 094 BPM P-R Int : 154 ms QRS Dur : 086 ms QT Int : 344 ms P-R-T Axes : 057 033 026 degrees QTc Int : 430 ms Normal sinus rhythm Normal ECG No previous ECGs available Confirmed by REYNOLD COON, DEVIKA ([id number]), school photograph editor JEISON OLIVEIRA ([id number]) on 12/17/2021 12:56:34 PM Referred By: WANDY Confirmed By:DEVIKA FLAHERTY MD
[2021-12-15 05:37] LABS: Cholesterol 167 mg/dL (200); Ferritin 146 ng/mL (26-388); High Density Lipoprotein 36 mg/dL; Iron 77 ug/dL (65-175); Iron Binding Capacity,Total 248 ug/dL (250-450); Triglycerides 148 mg/dL; Troponin-I HS 133 pg/mL (3.0-78.0); Very Low Density Lipoprotein 30 mg/dL (5-40)
--- NOTE | 2021-12-15 05:55 | ECHOD_ITS ---
Reason For Study: CP Procedure This was a 2D Doppler, Color Flow transthoracic echocardiogram. Exam performed portable in patient room. Left Ventricle The estimated ejection fraction is 55 %. No evidence for diastolic dysfunction. No regional wall motion abnormalities noted. Right Ventricle Normal RV size. Normal systolic function. Atria Normal left atrium. Normal right atrium. No doppler evidence for ASD. Mitral Valve There is mild mitral annular calcification. There is no mitral valve stenosis. No mitral valve insufficiency. Tricuspid Valve There is no tricuspid stenosis. Trivial tricuspid valve insufficiency. Pulmonary artery systolic pressure is 20 mmHg. Aortic Valve Trisinus/trileaflet aortic valve. There is no aortic stenosis. No aortic valve insufficiency. Pulmonic Valve There is no pulmonic valvular stenosis. No pulmonic valve insufficiency. Great Vessels Normal aortic root. Pericardium/Pleural No pericardial effusion. MMode/2D Measurements & Calculations LVIDd: 4.4 cm IVSd: 1.2 cm LA dimension: 3.6 cm LVIDs: 2.8 cm LVPWd: 1.1 cm RVDd: 4.3 cm FS: 35.6 % LAV(MOD-bp): 53.1 ml LA A4 area: 19.9 cm2 RA A4 area: 16.2 cm2 LAV(MOD-bp) Indexed: 24.4 ml/m2 LAV(MOD-sp2): 42.2 ml LAV(MOD-sp4): 54.6 ml Time Measurements MV dec time: 0.21 sec Doppler Measurements & Calculations MV E max adair: 71.7 cm/sec Lat Peak E' Adair: 11.6 cm/sec Med Peak E' Adair: 9.1 cm/sec MV A max adair: 66.1 cm/sec E/E' lat: 6.2 E/E' med: 7.9 MV E/A: 1.1 MV V2 max: 86.1 cm/sec MV P1/2t max adair: 86.4 cm/sec Ao V2 max: 96.4 cm/sec MV max P.0 mmHg MV P1/2t: 57.0 msec Ao max P.7 mmHg MV V2 mean: 51.7 cm/sec MV dec slope: 444.5 cm/sec2 MV mean P.3 mmHg MVA(P1/2t): 3.9 cm2 MV V2 VTI: 23.9 cm LV V1 max: 69.1 cm/sec PA V2 max: 112.7 cm/sec TR max adair: 183.8 cm/sec LV V1 max P.9 mmHg TR max P.5 mmHg ECHO/Echo Complete Interpretation Summary The estimated ejection fraction is 55 %. No evidence for diastolic dysfunction. Ordering Physician: August Marquez Referring Physician: Eddie Sunshine Performed By: Fred Box RCS
--- NOTE | 2021-12-15 07:57 | PCM.PN.HOSP ---
Objective Data Objective Data Vital Signs: Vital Signs Temp Pulse Resp BP Pulse Ox 98.8 F 75 18 103/73 100 12/15/21 05:00 12/15/21 07:14 12/15/21 05:00 12/15/21 05:00 12/15/21 05:00 Oxygen Delivery Method Room Air Weight: 231 lb 7.766 oz Body Mass Index (BMI) 35.2 Lab / Micro Data Result Diagrams: 12/15/21 04:35 12/14/21 22:13 Labs: Laboratory Results - last 24 hr 12/14/21 22:13: WBC 5.7, RBC 3.52 L, Hgb 10.9 L, Hct 31.0 L, MCV 88.1, MCH 31.0, MCHC 35.2, RDW Std Deviation 39.0, RDW Coeff of Radha 12.2, Plt Count 167, MPV 8.8, Immature Gran % (Auto) 0.500, Neut % (Auto) 63.4, Lymph % (Auto) 23.7, [place] % (Auto) 10.9 H, Eos % (Auto) 1.1, Baso % (Auto) 0.4, Absolute Neuts (auto) 3.6, Absolute Lymphs (auto) 1.35, Nucleated RBC % 0 12/14/21 22:13: Sodium 141, Potassium 3.6, Chloride 107, Carbon Dioxide 25.0, Anion Gap 9, BUN 25 H, Creatinine 1.30, Estim Creat Clear Calc 67.23, Est GFR (MDRD) Af Amer 76, Est GFR (MDRD) Non-Af 63, BUN/Creatinine Ratio 19.2, Glucose 78, Calcium 9.3, Troponin I High Sens 104 H 12/15/21 00:54: Troponin I High Sens 162 H* 12/15/21 04:35: WBC 7.2, RBC 4.91, Hgb 15.1, Hct 42.8, MCV 87.2, MCH 30.8, MCHC 35.3, RDW Std Deviation 39.6, RDW Coeff of Radha 12.5, Plt Count 212, MPV 8.7, Immature Gran % (Auto) 0.700, Neut % (Auto) 59.8, Lymph % (Auto) 27.0, [place] % (Auto) 10.7 H, Eos % (Auto) 1.5, Baso % (Auto) 0.3, Absolute Neuts (auto) 4.3, Absolute Lymphs (auto) 1.95, Nucleated RBC % 0 12/15/21 04:35: Iron 77, TIBC 248 L, Iron Saturation 31.0, Ferritin 146, Troponin I High Sens 133 H*, Triglycerides 148, Cholesterol 167, LDL Cholesterol 101, VLDL Cholesterol 30, HDL Cholesterol 36 L Radiography Diagnostic Testing: Radiology Impression Chest X-Ray 12/14/21 22:12 IMPRESSION: Normal x-ray examination of the chest. Electronically Signed: Lavell Rankin MD at 22:39 EDT , Rhythm Strip Rhythm Strip: Sinus Tach Rate: 111 Ectopy: None Assessment & Plan Assessment/Plan (1) Chest pain: PLAN: 1. [id number]'s troponin is slightly elevated, his narrative concerns me for angina, patient will be placed in observation status on PCU, he will have serial cardiac enzymes drawn, patient will have an echocardiogram tomorrow, he will be monitored on telemetry, he will be seen by cardiology, he will be placed on enteric-coated aspirin a day and Lipitor. Lipid profile will be obtained in the morning. Patient had concerns about staying in the hospital all weekend long and I told him it would be up to him to make the decision whether to stay until Friday to have a heart catheterization versus go home on medication-he will have to discuss this with cardiology and with the attending hospitalist in the morning. #2 anemia-etiology unclear, iron studies will be drawn on the patient, he denies any melena, hematochezia, or hematemesis. Patient does take Advil occasionally for pain but does not take any aspirins on a daily basis. #3 GERD-patient takes Nexium daily
[2021-12-15] MEDS: Aspirin E.C. 81 MG Tablet PO (09:18)
[2021-12-15] MEDS: Pantoprazole Sodium 20 MG Tablet PO (09:19)
[2021-12-15 11:31] LABS: Troponin-I HS 57 pg/mL (3.0-78.0)
--- NOTE | 2021-12-15 11:33 | PCM.DC ---
Discharge Instructions Diet Discharge Diet: Low fat / Low cholesterol and 2000 mg Sodium Diet Activity Discharge Activity: Return to Normal Activity Weight Bearing Status: Weight bearing as tolerated Dressing / Incision Call your doctor if you observe: Fever of 101 or Higher, Coldness, Increased Pain, Numbness or Tingling, Change in Color, Inability to urinate, Inability to have a bowel movement, Shortness of breath, Dizziness, Fainting spells, Swelling in the ankles, Chest pain, Prolonged hiccupping, Increased palpitations (irregular heartbeat), Calf discomfort and Uncontrolled pain Follow Up Care Test Results: Test results from this visit will be discussed in further detail at your follow-up appointment, if applicable. Discharge Plan Admission Admit Date/Time: 12/14/21 23:44 Primary Reason for Your Visit: At coronary syndrome/non-STEMI Attending Provider: Hugo Howard Primary Care Provider: Eddie Sunshine Consulting Providers: Cody Fisher ; August Marquez Discharge Orders/Prescriptions Prescriptions: New aspirin 81 mg Tablet,Delayed Release (Dr/Ec) 81 mg PO BREAKFAST Qty: 30 RF: 2 metoprolol succinate 25 mg tablet extended release 24 hr 25 mg PO DAILY Qty: 30 RF: 1 atorvastatin [Lipitor] 40 mg tablet 40 mg PO QHS Qty: 30 RF: 2 Continued magnesium 250 mg tablet 250 mg PO DAILY RF: 0 cetirizine [Zyrtec] 10 MG tablet 10 mg PO DAILY RF: 0 esomeprazole magnesium [Nexium] 20 MG capsule 20 mg PO DAILY RF: 0 Referrals / Follow Up: Eddie Sunshine DO [Primary Care Provider] - Disposition Disposition (needs filled in before D/C Order can be placed): Home, Self Care
--- NOTE | 2021-12-15 12:35 | PCM.CONS.C ---
Assessment & Plan Assessment/Plan (1) Chest pain: QUALIFIERS: Chest pain type: unspecified Qualified Code(s): R07.9 - Chest pain, unspecified PLAN: Suggestive of unstable angina/non-STEMI. Patient's hemoglobin on presentation was 10.9 and is 15.1 today. His hemoglobin from 2020 was around 17. It appears that the 10.9 value was erroneous. No history of bleeding. We will proceed with coronary angiography. Risks and benefits discussed with the patient. (2) Elevated troponin: HPI Consult Data Date of Consult: 12/15/21 HPI Narrative HPI Narrative: CAROLYN VÁSQUEZ, is a 46 M who presents with 2 episodes of chest pain. Patient has remained chest pain-free since admission. His troponin went up to around 160 and has started trending down. Review of systems: All systems reviewed. All else is negative except that in [facility]PI [facility] Medical History GERD (gastroesophageal reflux disease) Seasonal allergies Home Medications cetirizine [Zyrtec] 10 mg PO DAILY 08/06/18 [History Last Taken 12/14/21] esomeprazole magnesium [Nexium] 20 mg PO DAILY 08/06/18 [History Last Taken 12/14/21] magnesium 250 mg tablet 250 mg PO DAILY 08/13/18 [History Last Taken 12/14/21] aspirin 81 mg PO BREAKFAST #30 tab 12/15/21 [Rx Last Taken Unknown] atorvastatin 80 mg PO QHS #30 tab 12/15/21 [Rx Last Taken Unknown] lisinopril 2.5 mg PO DAILY #30 tab 12/15/21 [Rx Last Taken Unknown] metoprolol succinate 25 mg PO DAILY #30 tab 12/15/21 [Rx Last Taken Unknown] nitroglycerin 0.4 mg SUBLINGUAL Q5M PRN #30 tab 12/15/21 [Rx Last Taken Unknown] ticagrelor [Brilinta] 90 mg PO BID #60 tab 12/15/21 [Rx Last Taken Unknown] Allergy/AdvReac Type Severity Reaction Status Date / Time No Known Allergies Allergy Verified 12/14/21 21:56 Family History Grandfather Cancer esophageal Diabetes Grandmother Diabetes Surgical History History of appendectomy (~07/2018) History of fracture of forearm History of tonsillectomy Social History Smoking Status: Former smoker Physical Exam Const alert and oriented x3 Orientation / Consciousness: awake HEENT normocephalic Eyes no scleral icterus Chest inspection of chest normal Resp normal respiratory effort Cardio regular rate Skin no rashes or lesions noted Neuro oriented x3 Psych mental status grossly normal Risk Stratification Risk Stratification Applicable: No Charges/Coding Visit Charges Inpatient E&M: 30500 Init Hosp L2 Objective Data Vital Signs: Vital Signs Temp Pulse Resp BP Pulse Ox 97.7 F L 85 18 132/87 H 96 12/15/21 09:13 12/15/21 09:18 12/15/21 09:13 12/15/21 09:18 12/15/21 09:13 Oxygen Delivery Method Room Air Weight: 231 lb 7.766 oz Body Mass Index (BMI) 35.2 Lab / Micro Data Result Diagrams: 12/15/21 04:35 12/14/21 22:13 Labs: Laboratory Results - last 24 hr 12/14/21 22:13: WBC 5.7, RBC 3.52 L, Hgb 10.9 L, Hct 31.0 L, MCV 88.1, MCH 31.0, MCHC 35.2, RDW Std Deviation 39.0, RDW Coeff of Radha 12.2, Plt Count 167, MPV 8.8, Immature Gran % (Auto) 0.500, Neut % (Auto) 63.4, Lymph % (Auto) 23.7, [place] % (Auto) 10.9 H, Eos % (Auto) 1.1, Baso % (Auto) 0.4, Absolute Neuts (auto) 3.6, Absolute Lymphs (auto) 1.35, Nucleated RBC % 0 12/14/21 22:13: Sodium 141, Potassium 3.6, Chloride 107, Carbon Dioxide 25.0, Anion Gap 9, BUN 25 H, Creatinine 1.30, Estim Creat Clear Calc 67.23, Est GFR (MDRD) Af Amer 76, Est GFR (MDRD) Non-Af 63, BUN/Creatinine Ratio 19.2, Glucose 78, Calcium 9.3, Troponin I High Sens 104 H 12/15/21 00:54: Troponin I High Sens 162 H* 12/15/21 04:35: WBC 7.2, RBC 4.91, Hgb 15.1, Hct 42.8, MCV 87.2, MCH 30.8, MCHC 35.3, RDW Std Deviation 39.6, RDW Coeff of Radha 12.5, Plt Count 212, MPV 8.7, Immature Gran % (Auto) 0.700, Neut % (Auto) 59.8, Lymph % (Auto) 27.0, [place] % (Auto) 10.7 H, Eos % (Auto) 1.5, Baso % (Auto) 0.3, Absolute Neuts (auto) 4.3, Absolute Lymphs (auto) 1.95, Nucleated RBC % 0 12/15/21 04:35: Iron 77, TIBC 248 L, Iron Saturation 31.0, Ferritin 146, Troponin I High Sens 133 H*, Triglycerides 148, Cholesterol 167, LDL Cholesterol 101, VLDL Cholesterol 30, HDL Cholesterol 36 L 12/15/21 11:00: Troponin I High Sens 57 Rhythm Strip Rhythm Strip: Sinus Tach Rate: 111 Ectopy: None Cardiology Labs/Tests 12/14/21 22:13: WBC 5.7, RBC 3.52 L, Hgb 10.9 L, Hct 31.0 L, MCV 88.1, MCH 31.0, MCHC 35.2, Plt Count 167, MPV 8.8, Immature Gran % (Auto) 0.500, Neut % (Auto) 63.4, Lymph % (Auto) 23.7, [place] % (Auto) 10.9 H, Eos % (Auto) 1.1, Baso % (Auto) 0.4, Absolute Neuts (auto) 3.6, Nucleated RBC % 0 12/14/21 22:13: Sodium 141, Potassium 3.6, Chloride 107, Carbon Dioxide 25.0, Anion Gap 9, BUN 25 H, Creatinine 1.30, Est GFR (MDRD) Af Amer 76, Est GFR (MDRD) Non-Af 63, BUN/Creatinine Ratio 19.2, Glucose 78, Calcium 9.3 12/15/21 04:35: WBC 7.2, RBC 4.91, Hgb 15.1, Hct 42.8, MCV 87.2, MCH 30.8, MCHC 35.3, Plt Count 212, MPV 8.7, Immature Gran % (Auto) 0.700, Neut % (Auto) 59.8, Lymph % (Auto) 27.0, [place] % (Auto) 10.7 H, Eos % (Auto) 1.5, Baso % (Auto) 0.3, Absolute Neuts (auto) 4.3, Nucleated RBC % 0 12/15/21 04:35: Iron 77, TIBC 248 L, Iron Saturation 31.0, Ferritin 146, Triglycerides 148, Cholesterol 167, LDL Cholesterol 101, VLDL Cholesterol 30, HDL Cholesterol 36 L Rhythm: EKG: ECHO: Stress Test: Cardiac Cath: PCI: CT Surgery: Holter monitor: EPS: PPM: CXR: Chest CT Scan: Radiography Diagnostic Testing: Radiology Impression Chest X-Ray 12/14/21 22:12 IMPRESSION: Normal x-ray examination of the chest. Electronically Signed: Lavell Rankin MD at 22:39 EDT ,
--- NOTE | 2021-12-15 13:24 | CASEMGMT ---
Insurance review for hospitals In-network with [employer] PPO Insurance if transfer is recommended is as follows: [facility], [facility], [facility], [facility], [facility], [facility], [facility] ([facility]), [facility], and . Iker BSN RN CM
--- NOTE | 2021-12-15 14:34 | CT_ITS ---
STUDY: CTA CHEST REASON FOR EXAM: Male, 46 years old. SUSPICION OF PE RADIATION DOSAGE (If Supplied By Facility): CTDIvol = ( 17.25 ) mGy, DLP = ( 474.47 ) mGycm TECHNIQUE: The examination was performed with the intravenous administration of IV 100mL Isovue-370. Post-processing of the angiographic images was performed, with multiplanar reformation and 3D reconstruction. Individualized dose optimization techniques were used for this CT. COMPARISON: Chest x-ray 12/14/2021 FINDINGS: Normal enhancement of the main pulmonary artery and right and left pulmonary arteries. Normal enhancement of the bilateral peripheral pulmonary arteries. There is no demonstrated pulmonary embolism. Normal thoracic aorta and visualized great vessels. There is no demonstrated aortic dissection. Normal heart and pericardium. Normal mediastinum. Normal hilar regions. Normal visualized trachea and bronchi. The lungs demonstrate mild dependent atelectasis in the posterior aspects of the superior segments of both lower lobes extending to the posterior basilar segments of both lower lobes. There is mild fibrosis anterior medially in the right middle lobe. Normal pulmonary parenchyma. Normal pleura. Normal chest wall structures. Mild degenerative disc disease and spondylosis of the mid and lower thoracic spine. Normal visualized upper abdomen. The bibasilar atelectasis seen on chest CT not evident on prior chest x-ray likely due to greater sensitivity of chest CT. CT/CTA Chest W/WO Contrast IMPRESSION: No evidence of pulmonary embolus. Mild dependent atelectasis posterior both lower lobes extending from superior segments of the posterior basilar segments. Mild degenerative disc disease and spondylosis of the mid and lower thoracic spine. Electronically Signed: August Mansfield MD at 17:19 EDT ,
--- NOTE | 2021-12-15 14:47 | PCM.DC.SUM ---
Providers Date of Admission: 12/14/21 Date of Discharge: 12/15/21 Primary Care Physician: Dr. Eddie Sunshine, Consultations 12/15/21 00:24 Consult: Cardiology Routine Consulting Provider: Cody Fisher Reason for Consult: elevated troponin, chest pain EMERGENT Consult: No MD Notified: Yes Date Notified: 12/14/21 Time Notified: 23:48 Method of Notification: Verbal Method of Consult:: In-Person Reason For Visit: NON-STEMI, CHEST PAIN Diagnosis Discharge Diagnosis (1) Chest pain: Status: Acute Code(s): R07.9 - Chest pain, unspecified Qualifiers: Chest pain type: unspecified Qualified Code(s): R07.9 - Chest pain, unspecified (2) Elevated troponin: Status: Acute Code(s): R77.8 - Other specified abnormalities of plasma proteins Medications at Discharge Home Medications cetirizine [Zyrtec] 10 mg PO DAILY 08/06/18 esomeprazole magnesium [Nexium] 20 mg PO DAILY 08/06/18 magnesium 250 mg tablet 250 mg PO DAILY 08/13/18 aspirin 81 mg PO BREAKFAST #30 tab 12/15/21 atorvastatin [Lipitor] 40 mg PO QHS #30 tab 12/15/21 metoprolol succinate 25 mg PO DAILY #30 tab 12/15/21 Hospital Course Summary of Care Provided Hospital Course: This is a 46-year-old question gentleman who came to ED with 2 episodes of left upper chest discomfort associated with shortness of breath/labored breathing or dyspnea. 1. Unstable angina/abnormal troponin probably due to sinus tachycardia/demand ischemia; type I ND due to atherosclerotic coronary artery disease ruled out.: The patient was admitted in PCU. Twelve-lead EKG shows normal sinus rhythm, normal EKG. First EKG in ED was sinus tachycardia at 111 bpm. Patient first troponin was elevated, second got higher, third showing downward trend and fourth normal. Patient went for cardiac cath shows luminal irregularities. 2D echo shows EF 55% with no evidence of diastolic function. As patient was sinus tachycardic with positive elevated troponin it was decided to do CTPA to rule out PE. CTA is negative for PE but shows bibasilar atelectasis. Advised to continue incentive spirometry. Patient initially started on aspirin, Brilinta, beta-kay and high intensity statin as ACS protocol for non-STEMI versus cardiac cath negative except luminal irregularities, it was decided to discharge the patient on baby aspirin, metoprolol succinate and high intensity statin. Fasting profile shows low HDL, LDL 101. 2. Spurious lab/pseudo lab of low hemoglobin: Patient hemoglobin reported 10.9 and second 115.1 g%. I think it is a spurious lab. Iron profile shows TIBC 248, iron 77 (31% and ferritin normal. There is no anemia and anemia ruled #3 GERD-continue Nexium daily Discharge medication reconciliation done. Discharge follow-up instructions completed. Discharge process discussed with the patient and all questions were answered to patient's satisfaction. Prescription sent to patient's preferred pharmacy. Total time spent, exact 35 minutes on discharge meds reconciliation, examination, coordination of care with nurses and ancillary staff, review of imaging and blood test and discussion with the patient on follow-up instructions. Physical Exam Narrative Seen and examined. 46-year-old male admitted with 2 episodes of upper chest discomfort associated with labored breathing. First episode when he was working on moving chairs describes tightness for upper chest. No radiation lasted for 20 minutes second episode when returning home. No past medical history. EKG sinus tachycardia 111 bpm. Chest pain resolved by the time he came to ED. Never had prior chest discomfort/tightness or pain or ACS. No stress test or echo or heart cath in the past. Patient had heart cath On exam General: Alert, Oriented x3, Cooperative HEENT: Atraumatic, PERRLA, EOMI, Normocephalic Oral: No Gingival or Mucosal Lesions/ Ulcerations Neck: Supple, No JVD, Negative Carotid Bruits Lungs: Air entry diminished in bilateral lung bases. No crepitation/rhonchi Cardiovascular: Regular rate, Regular Rhythm, Normal S1, Normal S2, No murmurs Abdomen: Bowel Sounds Present, Soft, Non Tender, Non-Distended : No renal angle tenderness. No suprapubic tenderness. Extremities: No edema, Capillary Refill Less than 3 Seconds Skin: No rashes, No breakdown Musculoskeletal: No Tenderness to Palpation of Joints or Extremities Neurological: Cranial nerves II-XII grossly intact, DTR 2+/4 and Symmetrical, Neuro grossly intact Psych/Mental Status: Normal Affect, Appropriate. Weight / BMI Weight Weight: 231 lb 7.766 oz Body Mass Index (BMI) 35.2 ABG / Lab / Microbiology Data Result Diagrams: 12/15/21 04:35 12/14/21 22:13 Laboratory: Laboratory Results - last 24 hr 12/14/21 22:13: WBC 5.7, RBC 3.52 L, Hgb 10.9 L, Hct 31.0 L, MCV 88.1, MCH 31.0, MCHC 35.2, RDW Std Deviation 39.0, RDW Coeff of Radha 12.2, Plt Count 167, MPV 8.8, Immature Gran % (Auto) 0.500, Neut % (Auto) 63.4, Lymph % (Auto) 23.7, [place] % (Auto) 10.9 H, Eos % (Auto) 1.1, Baso % (Auto) 0.4, Absolute Neuts (auto) 3.6, Absolute Lymphs (auto) 1.35, Nucleated RBC % 0 12/14/21 22:13: Sodium 141, Potassium 3.6, Chloride 107, Carbon Dioxide 25.0, Anion Gap 9, BUN 25 H, Creatinine 1.30, Estim Creat Clear Calc 67.23, Est GFR (MDRD) Af Amer 76, Est GFR (MDRD) Non-Af 63, BUN/Creatinine Ratio 19.2, Glucose 78, Calcium 9.3, Troponin I High Sens 104 H 12/15/21 00:54: Troponin I High Sens 162 H* 12/15/21 04:35: WBC 7.2, RBC 4.91, Hgb 15.1, Hct 42.8, MCV 87.2, MCH 30.8, MCHC 35.3, RDW Std Deviation 39.6, RDW Coeff of Radha 12.5, Plt Count 212, MPV 8.7, Immature Gran % (Auto) 0.700, Neut % (Auto) 59.8, Lymph % (Auto) 27.0, [place] % (Auto) 10.7 H, Eos % (Auto) 1.5, Baso % (Auto) 0.3, Absolute Neuts (auto) 4.3, Absolute Lymphs (auto) 1.95, Nucleated RBC % 0 12/15/21 04:35: Iron 77, TIBC 248 L, Iron Saturation 31.0, Ferritin 146, Troponin I High Sens 133 H*, Triglycerides 148, Cholesterol 167, LDL Cholesterol 101, VLDL Cholesterol 30, HDL Cholesterol 36 L 12/15/21 11:00: Troponin I High Sens 57 Radiography Diagnostic Testing: Radiology Impression Chest X-Ray 12/14/21 22:12 IMPRESSION: Normal x-ray examination of the chest. Electronically Signed: Lavell Rankin MD at 22:39 EDT Reading Location ID and State: [facility] Tel , Service support , Echocardiogram 12/15/21 05:55 Interpretation Summary The estimated ejection fraction is 55 %. No evidence for diastolic dysfunction. Ordering Physician: August Marquez Referring Physician: Eddie Sunshine Performed By: Fred Box RCS D/C Instructions Discharge Diet: Low fat / Low cholesterol and 2000 mg Sodium Diet Weight Bearing Status: Weight bearing as tolerated Call your doctor if you observe: Fever of 101 or Higher, Coldness, Increased Pain, Numbness or Tingling, Change in Color, Inability to urinate, Inability to have a bowel movement, Shortness of breath, Dizziness, Fainting spells, Swelling in the ankles, Chest pain, Prolonged hiccupping, Increased palpitations (irregular heartbeat), Calf discomfort and Uncontrolled pain Meaningful Use Info Meaningful Use Diagnoses (Choose all that apply): None applicable Discharge Plan Admission Admit Date/Time: 12/14/21 23:44 Primary Reason for Your Visit: At coronary syndrome/non-STEMI Attending Provider: Hugo Howard Primary Care Provider: Eddie Sunshine Consulting Providers: Cody Fisher ; August Marquez Discharge Orders/Prescriptions Prescriptions: New aspirin 81 mg Tablet,Delayed Release (Dr/Ec) 81 mg PO BREAKFAST Qty: 30 RF: 2 metoprolol succinate 25 mg tablet extended release 24 hr 25 mg PO DAILY Qty: 30 RF: 1 atorvastatin [Lipitor] 40 mg tablet 40 mg PO QHS Qty: 30 RF: 2 Continued magnesium 250 mg tablet 250 mg PO DAILY RF: 0 cetirizine [Zyrtec] 10 MG tablet 10 mg PO DAILY RF: 0 esomeprazole magnesium [Nexium] 20 MG capsule 20 mg PO DAILY RF: 0 Referrals / Follow Up: Eddie Sunshine DO [Primary Care Provider] - Disposition Disposition (needs filled in before D/C Order can be placed): Home, Self Care Charges/Coding Visit Charges OBSV E&M: 56303 Observation care discharge
[2021-12-15] MEDS: Acetaminophen 325 MG Tablet 650 MG PO (14:53)
[2021-12-15] MEDS: 0.9% Normal Saline 1,000 ML 75 ML IV (15:12)
--- NOTE | 2021-12-15 16:33 | CL.D_ITS ---
Patient Name: CAROLYN VÁSQUEZ Jr. Study Date: 12/15/2021 Performing: Kavita Fisher MD Ht: 68 inches 173 cm : 1975 Wt: 231.8 lbs 105 kg Age: 46 Gender: male BSA: 2.18 PROCEDURE(S) PERFORMED DC01-(11451)LHC/COR/LV CLINICAL PROFILE AND INDICATIONS Indications: ACS <= 24 hrs Heart Failure: None Stress/Imaging Stress/Image Study Performed: No CAD Presentations: Unstable angina. CONCLUSIONS No significant CAD. EF is 50-55%. No significant or MR RECOMMENDATIONS DESCRIPTION OF PROCEDURE The patient arrived to the procedure lab. The risks and benefits of the procedure as well as a full d escription of our services here and current unavailability of surgical backup were fully explained to the patient and/or their significant other prior to the catheterization. The Timeout was completed, verifying the correct patient and procedure. The patient's procedural site was prepped and draped in the usual fashion. Local anesthetic was given subcutaneously to right radial region with Lidocaine 2% . Using a modified Seldinger technique, arterial access was obtained via the right radial artery, a 6 Fr sheath was inserted. Left Coronary Artery selective angiography was performed in multiple views u sing a 5 Fr. JL3.5 catheter. Left Ventriculography was performed in BIRD projection using a 5 Fr. JR4. LV to AO pullback pressures were then recorded. Right Coronary Artery selective angiography was then performed in multiple views using a 5 Fr. JR 4 catheter.The arterial sheath was pulled and a TR Band was applied for hemostasis w/ 12ml air CORONARY ANGIOGRAPHY DOMINANCE: Right Dominant LEFT HEART ASSESSMENT Left Ventricular Ejection Fraction: by LV Gram 50-55 % Normal LV wall motion LEFT MAIN: No significant disease noted LEFT ANTERIOR DESCENDING ARTERY: Mild luminal irregularities CIRCUMFLEX ARTERY: No significant disease noted RIGHT CORONARY ARTERY: No significant disease noted VALVE FINDINGS: No Aortic Valve Stenosis No Mitral Insufficiency COMPLICATIONS No Complications PROCEDURE MEDICATIONS Versed 1 mg IV Fentanyl 50 mcg IV Oxygen: 2 L/min via nasal cannula Heparin given IA 12/15/2021 14:04:51 Verapamil 2.5mg, Ntg 100mcgs, 3000 units of Heparin given IA 12/15/2021 14:04:51 SUMMARY OF HEMODYNAMIC DATA Time AIR REST ECG 13:37:14 AO 101/80 (90) SA 14:07:44 LV 106/8, 13 14:14:34 LV 98/12, 15 14:14:40 LV 118/1, 16 14:16:10 LV 118/1, 13 14:16:17 LVp 117/3, 14 14:16:27 AOp 106/75 (91) 14:16:32 Signed By Kavita Fisher MD On 12/15/2021 16:32:31 Kavita Fisher MD
== END 2021-12-15 14:46 | disposition home or self-care (01) ==
LOC: ED 22:43 → PCU 23:53
PROVIDERS: Admitting Provider Internal Medicine; Emergency Provider Emergency Medicine; PCP Student in an Organized Health Care Education/Training Program; Visit Provider Internal Medicine
DX: I20.0 Unstable angina (principal); J98.11 Atelectasis; Z87.891 Personal history of nicotine dependence; Z79.82 Long term (current) use of aspirin; K21.9 Gastro-esophageal reflux disease without esophagitis; Z79.899 Other long term (current) drug therapy; R77.8 Other specified abnormalities of plasma proteins
CPT/HCPCS: 36415; 71045; 71275; 80048; 80061; 82728; 83540; 83550; 84484; 85025; 93005; 93306; 93458; 96360; 96361; 99152; 99153; 99218; 99284; J7030; J7040; Q9957; Q9967; A4216; C1769; C1894; G0378

== ENCOUNTER → 2022-08-19 | Outpatient (CLI) | payer OTHER, SELFPAY ==
--- NOTE | 2022-08-19 13:56 | VDLE_ITS ---
Reason For Study: Pain RIGHT LEFT CFV is compressible, spontaneous, phasic, GSV is normal. competent and demonstrates normal CFV is compressible, spontaneous, phasic, augmentation. competent, and demonstrates normal Procedure augmentation. This is a venous duplex using B-mode, color FV is compressible, spontaneous, phasic, flow and spectral Doppler. competent and demonstrates normal Exam performed in department. augmentation. The exam was diagnostic. POP V is compressible, spontaneous, phasic, A preliminary report was called and/or faxed competent and demonstrates normal to Dr. Sawant. augmentation. T/P Trunk is compressible. PTV is compressible. LT PerV is compressible. VL/Venous Duplex US, Unilateral Interpretation Summary There is no evidence of left lower extremity deep vein thrombosis. Normal flow patterns right common femoral vein Ordering Physician: Eddie Sawant Referring Physician: Eddie Sunshine Performed By: Masood Baugh RVT
== END | disposition home or self-care (01) ==
LOC: CVS 13:54
PROVIDERS: PCP Student in an Organized Health Care Education/Training Program; Visit Provider Orthopaedic Surgery
DX: M79.605 Pain in left leg (principal)
CPT/HCPCS: 93971

== ENCOUNTER 2023-01-30 09:46 | Emergency (ER) | payer OTHER, SELFPAY ==
[2023-01-30 09:47] VITALS: BP 121/94; PULSE 83; RESP 16; TEMP 36.2; O2SAT 96; BMI 34.1
[2023-01-30 09:55] VITALS: BP 139/116; PULSE 85; RESP 20; O2SAT 97
--- NOTE | 2023-01-30 10:12 | EKG12_ITS ---
Test Reason : PALP Blood Pressure : / mmHG Vent. Rate : 078 BPM Atrial Rate : 078 BPM P-R Int : 146 ms QRS Dur : 080 ms QT Int : 378 ms P-R-T Axes : 041 014 011 degrees QTc Int : 430 ms Normal sinus rhythm Normal ECG Confirmed by JAZIEL COON, DAHLIA ([id number]), editor trade journal JEISON OLIVEIRA ([id number]) on 02/03/2023 1:02:30 PM Referred By: STEPHAN/KATIE Confirmed By:LOPEZ SHERIFF MD
--- NOTE | 2023-01-30 10:12 | EX.ED.DYSGE1 ---
HPI History of Present Illness Chief Complaint: Palpitations Informant: patient Narrative Narrative: Patient presenting with palpitations. He states this mainly occurred yesterday. He was working in a very hot humid weather in a tree, he was up in the branches cutting/trimming, he was there for about an hour, and he was probably at least mildly dehydrated. He was feeling okay though, sweating, and he started having a noticeable difference in his heart rate that was sudden in onset, felt like racing, and a probably went on for about an hour total. The majority of the time he stayed in a tree but then he got done and came in and it continued and then while he was inside he became sweaty and felt lightheaded, he sat down and this made it better and eventually just went away. Then yesterday about 6 different episodes of feeling skip/separate palpitations without racing or lightheadedness, and then another time of that this morning. He called his doctor to make an appointment but they referred him here to the ER. He did have something similar happen last year, but not quite as long and it was associated with chest discomfort and dyspnea, with discomfort on his left arm, he had elevated heart enzymes according to him and was admitted for a heart cath, and it came back with clean coronaries according to him. He has been on baby aspirin ever since. He is a former smoker maybe 9 or 16-vaea-hirk history total but does not smoke anymore and do any other illicit drugs. He drinks a couple of coffee in the mornings, and a can of a caffeinated beverage every day, he drinks less than that yesterday, has not altered that routine recently. He drinks alcohol on the weekends, he drank some this past weekend, but not a lot, and this occurred on a Friday, yesterday. Denies any other illicit drugs or stimulants. [facility] Medical History Anemia GERD (gastroesophageal reflux disease) Seasonal allergies Home Medications cetirizine 10 mg tablet (Zyrtec) 10 mg PO DAILY allergies 08/06/18 [History Last Taken 12/14/21] esomeprazole magnesium 20 mg capsule,delayed release (Nexium) 20 mg PO DAILY stomach 08/06/18 [History Last Taken 12/14/21] magnesium 250 mg tablet 250 mg PO DAILY 08/13/18 [History Last Taken 12/14/21] aspirin 81 mg tablet,delayed release 81 mg PO BREAKFAST #30 tabs 12/15/21 [Rx Last Taken Unknown] atorvastatin 40 mg tablet (Lipitor) 40 mg PO QHS #30 tabs 12/15/21 [Rx Last Taken Unknown] metoprolol succinate 25 mg tablet,extended release 24 hr 25 mg PO DAILY #30 tabs 12/15/21 [Rx Last Taken Unknown] Allergy/AdvReac Type Severity Reaction Status Date / Time No Known Allergies Allergy Verified 12/14/21 21:56 Family History Grandfather Cancer esophageal Diabetes Grandmother Diabetes Surgical History History of appendectomy (~07/2018) History of fracture of forearm History of left heart catheterization (12/15/21) History of tonsillectomy Social History Smoking Status: Former smoker ROS ROS ED Constitutional Constitutional ED: Denies chills or fever(s) Eyes Eyes: Denies change in vision or diplopia ENT ENT ED: Denies rhinorrhea or sore throat Cardiovascular Cardiovascular: Reports as per HPI, palpitations and racing heartbeat; Denies chest pain, radiating jaw, neck or arm pain or syncope Respiratory/Chest Respiratory/Chest: Denies cough or dyspnea Gastrointestinal Gastrointestinal: Denies abdominal pain, diarrhea, nausea or vomiting Genitourinary Genitourinary ED: Denies dysuria or hematuria Musculoskeletal Musculoskeletal: Denies back pain or neck pain Integumentary Denies abscess or rash Neurologic Neurologic: Denies headache(s), paresthesias or weakness Psychiatric Psychiatric: Denies anxiety or suicidal thoughts EXAM Physical Exam Const Vital Signs: 01/30/23 09:47 01/30/23 09:55 01/30/23 09:55 Temperature 97.2 F L Temperature Source Temporal Pulse Rate 83 85 Respiratory Rate 16 20 H Respiratory Effort Normal Non-Labored Blood Pressure 121/94 H 139/116 H Blood Pressure Mean 103 123 Pulse Ox 96 97 Oxygen Delivery Method Room Air Room Air Positive well nourished and well developed General Appearance ED: well developed and NAD HEENT Reports moist mucous membranes normocephalic and atraumatic Eyes PERRL and EOMs intact bilaterally Neck full ROM, supple and no JVD Resp normal respiratory effort and clear to auscultation bilaterally Cardio regular rate, regular rhythm and no murmurs GI non-tender and non-distended Auscultation: normoactive bowel sounds Palpation: soft Back/Spine no CVA tenderness General Back: other FROM Extremity normal to inspection and no calf tenderness General Extremety ED: Negative for edema, pulses abnormal or tenderness General Extremity: Negative for edema or pulses abnormal Neuro oriented x3, CN's II-XII intact bilaterally and no sensory deficits noted Sensorium / Orientation: awake and alert Motor Exam: strength 5/5 throughout Psych mental status grossly normal Skin no rashes or lesions noted and no wounds MDM MDM MDM Narrative Medical decision making narrative: I reviewed some old records, his echocardiogram from last year was normal, and his heart cath showed no coronary stenosis or disease. EKG at this time is normal, we kept him on telemetry while we performed metabolic work-up and ran a set of enzymes. All of that returned normal. After 1 to 2 hours of observation here, he remained asymptomatic and had no ectopy or dysrhythmias or other telemetry events. This is a low risk palpitations event by history and normal ancillaries, and normal EKG, he had no symptoms of angina, and in addition has had cardiac studies about 14 months ago that showed normal coronaries and normal valves and normal cardiac function. No indication for admission at this time, we discussed this at length and gave patient and spouse a chance to ask any questions, I am having respiratory placed a 24-hour Holter on him and will have him follow-up with his doctor as an outpatient. We discussed reasons to return he is comfortable with that plan. History & Record Review Additional record(s) reviewed:: Prior outpatient record Lab Data Attestation: I reviewed the patient's lab results. Labs: Laboratory Results - last 24 hr 01/30/23 10:03 WBC 5.5 RBC 4.85 Hgb 14.7 Hct 43.5 MCV 89.7 MCH 30.3 MCHC 33.8 RDW Std Deviation 41.2 RDW Coeff of Radha 12.5 Plt Count 214 MPV 9.0 Immature Gran % (Auto) 0.500 Neut % (Auto) 61.3 Lymph % (Auto) 28.0 [place] % (Auto) 8.2 Eos % (Auto) 1.8 Baso % (Auto) 0.2 Absolute Neuts (auto) 3.3 Absolute Lymphs (auto) 1.53 Nucleated RBC % 0 Sodium 138 Potassium 3.8 Chloride 106 Carbon Dioxide 24.0 Anion Gap 8 BUN 18 Creatinine 0.98 Estim Creat Clear Calc 88.21 Est GFR (MDRD) Af Amer 104 Est GFR (MDRD) Non-Af 86 BUN/Creatinine Ratio 18.3 Glucose 110 H Calcium 8.6 Troponin I High Sens 18 Rhythm Strip Rhythm Strip: Sinus Rhythm Rate: 80 Ectopy: None EKG Initial EKG: Attestation: I personally reviewed and interpreted this EKG as follows: Interpretation: Sinus Rhythm and No Acute Injury Pattern Comments: Normal EKG Prior EKG tracings: available for review Prior: Unchanged Discharge Plan Triage Chief Complaint: Palpitations ED Provider: Trell Cespedes Dx/Rx/DC Orders Clinical Impression: Palpitations Instructions: Premature Ventricular Contractions, ED Understanding Supraventricular Tachycardia (SVT), ED Palpitations Prescriptions: No Action magnesium 250 mg tablet 250 mg PO DAILY cetirizine [Zyrtec] 10 MG tablet 10 mg PO DAILY esomeprazole magnesium [Nexium] 20 MG capsule 20 mg PO DAILY aspirin 81 mg Tablet,Delayed Release (Dr/Ec) 81 mg PO BREAKFAST Qty: 30 2RF metoprolol succinate 25 mg tablet extended release 24 hr 25 mg PO DAILY Qty: 30 1RF atorvastatin [Lipitor] 40 mg tablet 40 mg PO QHS Qty: 30 2RF Primary Care Provider: Waldemar Segura NP Referrals: Eddie Sunshine DO [Non-Staff] - 3-5 Days (OK for appt further out, as long as it is at least couple days after you turn in monitor) Disposition Disposition: Home, Self Care
[2023-01-30 10:23] LABS: Absolute Lymphocyte Count 1.53 X10^3/uL (0.83-4.51); Absolute Neutrophil Count 3.3 X10^3/uL (2.0-7.7); Basophil# 0.01 X10^3/uL; Basophil% 0.2 % (0-1); Eosinophils% 1.8 % (0-5); Hematocrit 43.5 % (40-54); Hemoglobin 14.7 g/dL (13.0-16.5); Lymphocyte # 1.53 X10^3/ul (0.83-4.51); Mean Corp Hgb Conc 33.8 g/dL (32-36); Mean Corpuscular Hgb 30.3 pg (27.0-32.0); Mean Corpuscular Volume 89.7 fL (80-94); Monocyte# 0.45 X10^3/uL; Monocyte% 8.2 % (0-10); NRBC Flagged by Analyzer 0 % (0-5); Neutrophil # 3.34 X10^3/uL (2.7-7.7); Neutrophil % 61.3 % (47-70); Platelet Count 214 K/mm3 (150-450); RBC Distribution Width CV 12.5 % (11.6-14.6); RBC Distribution Width SD 41.2 fl (35.1-43.9); Red Blood Count 4.85 M/mm3 (4.6-6.2); White Blood Count 5.5 K/mm3 (4.4-11.0)
[2023-01-30 10:42] LABS: Anion Gap 8 (5-15); BUN 18 mg/dL (7-18); BUN/Creat Ratio 18.3 RATIO (10-20); Calcium,Total 8.6 mg/dL (8.5-10.1); Chloride 106 mmol/L (98-107); Creatinine, Serum 0.98 mg/dL (0.70-1.30); EST Glomerular Filtration Rate 86 mL/min (>60); Est Glom Filt Rate - Afr Amer 104 mL/min (>60); Estimated Creatinine Clearance 88.21 ml/min; Glucose 110 mg/dL (74-106); Potassium 3.8 mmol/L (3.5-5.1); Sodium Level 138 mmol/L (136-145); Troponin-I HS 18 pg/mL (3.0-78.0)
[2023-01-30 11:52] VITALS: BP 114/87; PULSE 81; RESP 16; O2SAT 97
== END 2023-01-30 11:55 | disposition home or self-care (01) ==
PROVIDERS: Emergency Provider Emergency Medicine; PCP Nurse Practitioner Primary Care; Visit Provider Emergency Medicine
DX: R00.2 Palpitations (principal); Z87.891 Personal history of nicotine dependence; K21.9 Gastro-esophageal reflux disease without esophagitis; Z79.899 Other long term (current) drug therapy; Z90.49 Acquired absence of other specified parts of digestive tract
CPT/HCPCS: 80048; 84484; 85025; 93005; 99284; A4216

== ENCOUNTER → 2023-01-30 | Outpatient (CLI) | payer OTHER, SELFPAY | END | disposition home or self-care (01) | LOC: CVS 11:32 | PROVIDERS: PCP Nurse Practitioner Primary Care; Visit Provider Emergency Medicine | DX: Z00.00 Encounter for general adult medical examination without abnormal findings (principal) ==

== ENCOUNTER 2023-03-20 15:39 | Emergency (ER) | payer OTHER, SELFPAY ==
[2023-03-20 15:42] VITALS: BP 120/81; PULSE 106; RESP 18; TEMP 37.4; O2SAT 97; BMI 34.0
--- NOTE | 2023-03-20 17:39 | EX.ED.DYSGE1 ---
HPI History of Present Illness Chief Complaint: Fever Informant: patient Onset/Context/Timing Onset: Days (3) Context: Gradual Onset Timing: Continuous Quality: Cramping Location: Abdomen Worsened by: Eating Relieved by: Tylenol, Advil Associated Symptoms Associated Symptoms: Dizziness, weakness Narrative Narrative: Presents with fever, myalgias, and diarrhea that has been getting worse over the past 3 days. Patient states it came on gradually. Patient states it has been constant. Patient states that whenever he eats or drinks anything he gets abdominal cramping. Patient states he feels dizzy and lightheaded when he stands up. Patient states he feels generally weak. Patient states his temperature at home was up to 102.8. Patient denies any cough. Patient admits to nausea but denies any vomiting. Patient denies any melena or hematochezia. [facility] Medical History (Updated 03/20/23 @ 20:[address] Price Hernandez DO) Anemia GERD (gastroesophageal reflux disease) Seasonal allergies Home Medications cetirizine 10 mg tablet (Zyrtec) 10 mg PO DAILY allergies 08/06/18 [History Last Taken 12/14/21] esomeprazole magnesium 20 mg capsule,delayed release (Nexium) 20 mg PO DAILY stomach 08/06/18 [History Last Taken 12/14/21] magnesium 250 mg tablet 250 mg PO DAILY 08/13/18 [History Last Taken 12/14/21] aspirin 81 mg tablet,delayed release 81 mg PO BREAKFAST #30 tabs 12/15/21 [Rx Last Taken Unknown] atorvastatin 40 mg tablet (Lipitor) 40 mg PO QHS #30 tabs 12/15/21 [Rx Last Taken Unknown] metoprolol succinate 25 mg tablet,extended release 24 hr 25 mg PO DAILY #30 tabs 12/15/21 [Rx Last Taken Unknown] ondansetron 4 mg disintegrating tablet 4 mg PO Q8H PRN PRN Nausea #10 tabs 03/20/23 [Rx Last Taken Unknown] Allergy/AdvReac Type Severity Reaction Status Date / Time No Known Allergies Allergy Verified 03/20/23 15:42 Family History Grandfather Cancer esophageal Diabetes Grandmother Diabetes Surgical History (Updated 03/20/23 @ 17:[address] Price Hernandez DO) History of appendectomy (~07/2018) History of fracture of forearm History of left heart catheterization (12/15/21) History of tonsillectomy Hx of arthroscopic knee surgery Social History Smoking Status: Former smoker ROS ROS ED Constitutional Constitutional ED: Reports fever(s); Denies chills Eyes Eyes: Denies blurry vision or change in vision ENT ENT ED: Denies rhinorrhea or sore throat Cardiovascular Cardiovascular: Denies chest pain or palpitations Respiratory/Chest Respiratory/Chest: Denies cough or dyspnea Gastrointestinal Gastrointestinal: Reports abdominal pain, diarrhea and nausea; Denies vomiting Genitourinary Genitourinary ED: Denies dysuria or hematuria Musculoskeletal Musculoskeletal: Denies back pain or neck pain Integumentary Denies abscess or rash Neurologic Neurologic: Reports headache(s) and weakness Allergic/Immunologic Allergic/Immunologic ED: Denies mouth swelling or urticaria EXAM Physical Exam Const Vital Signs: 03/20/23 15:42 03/20/23 18:07 Temperature 99.3 F H 100.3 F H Temperature Source Temporal Oral Pulse Rate 106 H Respiratory Rate 18 Blood Pressure 120/81 H Blood Pressure Mean 94 Pulse Ox 97 Oxygen Delivery Method Room Air Positive well nourished and well developed General Appearance ED: well developed and NAD HEENT Reports moist mucous membranes Neck supple and no JVD Resp normal respiratory effort and clear to auscultation bilaterally Cardio regular rhythm and no murmurs Rate: tachycardic GI normal to inspection, nondistended, normoactive bowel sounds and non-tender Palpation: soft Extremity normal to inspection General Extremety ED: Negative for edema or tenderness General Extremity: Negative for edema Neuro oriented x3, CN's II-XII intact bilaterally and no sensory deficits noted Sensorium / Orientation: alert Motor Exam: strength 5/5 throughout Psych mental status grossly normal Skin no rashes or lesions noted MDM MDM MDM Narrative Medical decision making narrative: Differential diagnosis includes dehydration, acute kidney injury, electrolyte abnormality, gastroenteritis, pancreatitis, and peptic ulcer disease. CBC will be obtained to assess for leukocytosis or anemia. Comprehensive metabolic profile will be obtained to assess for hepatic function, renal function, electrolyte abnormality. Lipase will be obtained to assess for pancreatitis. Lab Data Attestation: I reviewed the patient's lab results. Lab results narrative: CBC was reviewed and was within normal limits. Comprehensive metabolic profile was reviewed and was within normal limits. Lipase was reviewed and was normal. Labs: Laboratory Results - last 24 hr 03/20/23 17:59 WBC 9.7 RBC 4.79 Hgb 14.7 Hct 43.2 MCV 90.2 MCH 30.7 MCHC 34.0 RDW Std Deviation 41.1 RDW Coeff of Radha 12.5 Plt Count 161 MPV 8.7 Immature Gran % (Auto) 0.400 Neut % (Auto) 81.1 H Lymph % (Auto) 10.6 L [place] % (Auto) 7.5 Eos % (Auto) 0.2 Baso % (Auto) 0.2 Absolute Neuts (auto) 7.9 H Absolute Lymphs (auto) 1.03 Nucleated RBC % 0 Sodium 136 Potassium 3.7 Chloride 104 Carbon Dioxide 27.0 Anion Gap 5 BUN 9 Creatinine 1.05 Estim Creat Clear Calc 82.33 Est GFR (MDRD) Af Amer 96 Est GFR (MDRD) Non-Af 80 BUN/Creatinine Ratio 8.6 L Glucose 105 Calcium 8.5 Total Bilirubin 0.80 AST 15 ALT 32 Alkaline Phosphatase 58 Total Protein 6.8 Albumin 3.4 Globulin 3.4 Albumin/Globulin Ratio 1.0 Lipase 31 Treatment and Re-Evaluation :: Patient was given IV fluids and Zofran. Patient is feeling better on reevaluation. Patient was advised of his findings. Patient was given a prescription for Zofran. Patient was instructed to start with small amounts of liquids more frequently. Patient was instructed to advance to a bland diet and then to a regular diet as he feels better. Patient was instructed to follow-up with his primary care physician in 5 to 7 days. Patient understood and was agreeable with the plan. All questions were answered. Discharge Plan Triage Chief Complaint: Fever Other Complaint: Abd Pain ED Provider: Price Hernandez Dx/Rx/DC Orders Clinical Impression: Diarrhea, Mild dehydration Instructions: ED Dehydration (Adult), ED Diarrhea, Unknown Cause Prescriptions: New ondansetron [ondansetron] 4 mg tablet,disintegrating 4 mg PO Q8H PRN PRN (Reason: Nausea) Qty: 10 0RF No Action magnesium 250 mg tablet 250 mg PO DAILY cetirizine [Zyrtec] 10 MG tablet 10 mg PO DAILY esomeprazole magnesium [Nexium] 20 MG capsule 20 mg PO DAILY aspirin 81 mg Tablet,Delayed Release (Dr/Ec) 81 mg PO BREAKFAST Qty: 30 2RF metoprolol succinate 25 mg tablet extended release 24 hr 25 mg PO DAILY Qty: 30 1RF atorvastatin [Lipitor] 40 mg tablet 40 mg PO QHS Qty: 30 2RF Primary Care Provider: Waldemar Segura NP Referrals: Waldemar Segura NP, [employer] [Primary Care Provider] - 3-5 Days Disposition Disposition: Home, Self Care
[2023-03-20] MEDS: Ondansetron 4 MG/2 ML Vial IV (18:00)
[2023-03-20] MEDS: 0.9% Normal Saline 1,000 ML 1000 ML IV (18:00)
[2023-03-20 18:07] VITALS: TEMP 37.9
[2023-03-20 18:09] LABS: Absolute Lymphocyte Count 1.03 X10^3/uL (0.83-4.51); Absolute Neutrophil Count 7.9 X10^3/uL (2.0-7.7); Basophil# 0.02 X10^3/uL; Basophil% 0.2 % (0-1); Eosinophil# 0.02 X10^3/uL; Eosinophils% 0.2 % (0-5); Hematocrit 43.2 % (40-54); Hemoglobin 14.7 g/dL (13.0-16.5); Lymphocyte # 1.03 X10^3/ul (0.83-4.51); Lymphocyte % 10.6 % (19-41); Mean Corpuscular Hgb 30.7 pg (27.0-32.0); Mean Corpuscular Volume 90.2 fL (80-94); Mean Platelet Vol. 8.7 fl (6.2-12.0); Monocyte# 0.73 X10^3/uL; Monocyte% 7.5 % (0-10); NRBC Flagged by Analyzer 0 % (0-5); Neutrophil # 7.87 X10^3/uL (2.7-7.7); Neutrophil % 81.1 % (47-70); Platelet Count 161 K/mm3 (150-450); RBC Distribution Width CV 12.5 % (11.6-14.6); RBC Distribution Width SD 41.1 fl (35.1-43.9); Red Blood Count 4.79 M/mm3 (4.6-6.2); White Blood Count 9.7 K/mm3 (4.4-11.0)
[2023-03-20 18:30] LABS: AST(SGOT) 15 U/L (15-37); Alanine Aminotransfer ALT/SGPT 32 U/L (16-61); Albumin, Serum 3.4 g/dL (3.2-5.0); Alkaline Phosphatase 58 U/L (45-117); Anion Gap 5 (5-15); BUN 9 mg/dL (7-18); BUN/Creat Ratio 8.6 RATIO (10-20); Calcium,Total 8.5 mg/dL (8.5-10.1); Chloride 104 mmol/L (98-107); Creatinine, Serum 1.05 mg/dL (0.70-1.30); EST Glomerular Filtration Rate 80 mL/min (>60); Est Glom Filt Rate - Afr Amer 96 mL/min (>60); Estimated Creatinine Clearance 82.33 ml/min; Globulin 3.4 g/dL (2.2-4.2); Glucose 105 mg/dL (74-106); Lipase 31 U/L (13-75); Potassium 3.7 mmol/L (3.5-5.1); Protein, Total 6.8 g/dL (6.4-8.2); Sodium Level 136 mmol/L (136-145)
[2023-03-20] MEDS: Acetaminophen 500 MG Tablet 1000 MG PO (18:46)
== END 2023-03-20 21:04 | disposition home or self-care (01) ==
PROVIDERS: Emergency Provider Emergency Medicine; PCP Nurse Practitioner Primary Care; Visit Provider Emergency Medicine
DX: E86.0 Dehydration (principal); R19.7 Diarrhea, unspecified; R50.9 Fever, unspecified; Z87.891 Personal history of nicotine dependence; K21.9 Gastro-esophageal reflux disease without esophagitis; Z79.899 Other long term (current) drug therapy; J30.2 Other seasonal allergic rhinitis; Z90.49 Acquired absence of other specified parts of digestive tract
CPT/HCPCS: 80053; 83690; 85025; 96361; 96374; 99284; J7030; J2405

== ENCOUNTER → 2023-08-22 | Outpatient (CLI) | payer OTHER, SELFPAY ==
--- OUTSIDE RECORDS SUMMARY | 2023-08-22 08:05 | XMS RPT_ITS | CCD ---
Author Name Unknown Address [address] [facility] [address] [place] [address] Organization [facility] Care Team Providers [employer] Name Role Phone MARTHA KELLY Primary Care Physician [phone] VERN COON, DR CRUZ Attending MARTHA Vigil Primary Care Unavailalejandra santizo Allergies Allergy Classification Reported Allergen(s) Allergy Type Date of Onset Reaction(s) Facility (3 sources) seasonal enviromental Allergy to substance typical [facility] Medications Current Medications Medication Drug Class(es) Dates Sig (Normalized) Sig (Original) Allergy shots (2 sources) Start: 07-05-2022 Allergy shots Allergy shots, every other week, 0 Refill(s), 101.7 Start Date: 07/05/22 Status: Ordered Completed/Discontinued Medications Medication Drug Class(es) Dates Sig (Normalized) Sig (Original) ketotifen 0.25 mg/ml ophthalmic solution (3 sources) Histamine-1 Receptor Inhibitor Start: 12-20-2021 End: 06-18-2022 ketotifen 0.025% ophthalmic solution Dose = 1 drop(s), Eyes, both, q12h, # 7.5 mL, 5 Refill(s), Pharmacy: [facility] [id number], 172.7, cm, 12/20/21 13:01:00 EDT, Height, kg, 12/20/21 13:01:00 EDT, Dosing Weight Start Date: 12/20/21 Stop Date: 06/18/22 Status: Ordered Problems Problem Classification Problem Date Documented Da te Episodic/Chronic Esophageal disorders (3 sources) Gastroesophageal reflux disease 09-08-2019 Chronic Other bone disease and musculoskeletal deformities (3 sources) Somatic dysfunction of pelvic region 09-08-2019 Episodic Other inflammatory condition of skin (3 sources) Itching of eye 12-31-2019 Episodic Other lower respiratory disease (3 sources) Cough 09-08-2019 Episodic Other lower respiratory disease (3 sources) Snoring 08-18-2020 Episodic Other nutritional; endocrine; and metabolic disorders (3 sources) Obesity 09-08-2019 Chronic Other upper respiratory disease (3 sources) Seasonal allergy 12-31-2019 Chronic Residual codes; unclassified (3 sources) Hypersomnia 08-18-2020 Chronic Residual codes; unclassified (3 sources) Periodic limb movement disorder 09-22-2020 Chronic Spondylosis; intervertebral disc disorders; other back problems (3 sources) Low back pain 09-08-2019 Episodic Unclassified (7 sources) Patient encounter status 01-24-2022 Results Test Name Value Interpretation Reference Range Facil ity Vital Signs Date Time Vital Sign Value Performing Clinician Faci lity 08-18-2023 09:12-0500 Diastolic Blood Pressure Non-Invasive 84 mm[Hg] DR NANCY PORRAS MD [facility] 08-18-2023 09:12-0500 Heart rate 71 /min DR NANCY PORRAS MD [facility] 08-18-2023 09:12-0500 Respiratory rate 15 /min DR NANCY PORRAS MD [facility] 08-18-2023 09:12-0500 Systolic Blood Pressure Non-Invasive 116 mm[Hg] DR NANCY PORRAS MD [facility] 08-18-2023 09:07-0500 Diastolic Blood Pressure Non-Invasive 79 mm[Hg] DR NANCY PORRAS MD [facility] 08-18-2023 09:07-0500 Heart rate 67 /min DR NANCY PORRAS MD [facility] 08-18-2023 09:07-0500 Respiratory rate 16 /min DR NANCY PORRAS MD [facility] 08-18-2023 09:07-0500 Systolic Blood Pressure Non-Invasive 109 mm[Hg] DR NANCY PORRAS MD [facility] 08-18-2023 08:57-0500 Diastolic Blood Pressure Non-Invasive 91 mm[Hg] DR NANCY PORRAS MD [facility] 08-18-2023 08:57-0500 Heart rate 87 /min DR NANCY PORRAS MD [facility] 08-18-2023 08:57-0500 Respiratory rate 19 /min DR NANCY PORRAS MD [facility] 08-18-2023 08:57-0500 Systolic Blood Pressure Non-Invasive 103 mm[Hg] DR NANCY PORRAS MD [address] [place] [address] 08-18-2023 08:48-0500 Body temperature 97.88 [degF] DR NANCY PORRAS MD [facility] 08-18-2023 08:40-0500 Respiratory Rate - Anes 14 br/min DR NANCY PORRAS MD [facility] 08-18-2023 08:35-0500 Respiratory Rate - Anes 11 br/min DR NANCY PORRAS MD [facility] 08-18-2023 08:30-0500 Respiratory Rate - Anes 11 br/min DR NANCY PORRAS MD [facility] 08-18-2023 07:34-0500 Body height 172.[address] NANCY PORRAS MD [facility] 08-18-2023 07:34-0500 Body temperature 98.06 [degF] DR NANCY PORRAS MD [facility] 08-18-2023 07:34-0500 Body weight 102.[address] NANCY PORRAS MD [facility] 08-18-2023 07:34-0500 Heart rate 71 /min DR NANCY PORRAS MD [facility] Encounters Encounter Date Encounter Type Care Provider Facility Start: 08-18-2023 End: 08-18-[address] NANCY PORRAS MD Facility:B Start: 08-18-2023 End: 08-18-[address] NANCY PORRAS MD [facility] Start: 07-31-2022 End: 07-31-2022 Patient encounter procedure PENNY MENDOZA [facility] Start: 01-24-2022 End: 01-24-2022 Patient encounter procedure [facility]TH[facility] N[facility]SE SUPERVISOR-[employer]ANITE C[employer]TER APPRENTICE [facility] Procedures Date Procedure Procedure Detail Performing Clinician Start: 12-15-2021 Cardiac catheterization MARTHA [facility]JESUS [facility] NURSE SUPERVISOR-[employer]ITE C[employer]TER APPRENTICE Immunizations Immunization Date Immunization Notes Care Provider [facility] 01-24-2022 tetanus toxoid, redu lena diphtheria toxoid, and acellular pertussis vaccine, adsorbed; Translations: [Boostrix (Tdap)] MARTHA DEJESUS [facility] NURSE SUPERVISOR-[employer]ITE C[employer]TER APPRENTICE [facility] 09-27-2020 SARS-CoV-2 mRNA (tozinameran) vaccine MARTHA [facility]JESUS [facility] NURSE SUPERVISOR-GRANITE CUTTER APPRENTICE [facility] 09-06-2020 SARS-CoV-2 mRNA (tozinameran) vaccine MARTHA [facility]JESUS [facility] NURSE SUPERVISOR-GRANITE CUTTER APPRENTICE [facility] Payers Date Payer Category Payer Unknown [id number] 1975 Unknown [id number] Social History Date Type Detail Facility Start: 09-08-2019 End: 07-05-2022 Tobacco smoking status Ex-smoker (finding) [facility] Functional Status Date Assessment Result Facility 08-18-2023 Functional Status Repositions self [facility] 08-18-2023 Functional Status [facility] Mental Status Date Assessment Result Facility 08-18-2023 Mental Status Oriented x 4 [facility] 08-18-2023 Mental Status [facility] Clinical Notes 12-20-2021 to 08-18-2023 Note Date & Type Note Facility [facility] ADMISSION HISTORY AN D PHYSICIAL CHIEF COMPLAINT: HISTORY OF PRESENT ILLNESS: REVIEW OF SYSTEMS: ACTIVE PROBLEMS: (13) Colon cancer screening (300602266) Cough (83403492) GERD (gastroesophageal reflux disease) (969075480) Hypersomnolent (762233227) Itchy eyes (866828091) Low back pain, episodic (715900714) Obesity (9302228150) Periodic limb movements of sleep (2624708138) Screening for prostate cancer (864335521) Seasonal allergies (8158177733) Snoring (351921612) Somatic dysfunction of pelvic region (5172578343) Well adult exam (194127664) MEDICATIONS: Active Inpt Meds: None Active PRN Meds: None One Time Meds: (Completed) midazolam (Versed (ANES)) IV Push, Once, Stop: 08/18/23 8:29:00 EST Active IV Meds: Lactated Ringers Infusion 1,000 mL (LR 1,000 mL) Start: 08/18/23 7:33:00 EST, Rate: 50 mL/hr, 08/18/23 7:33:00 EST ALLERGIES: (1) seasonal enviromental FAMILY HISTORY: SOCIAL HISTORY: PHYSICAL EXAM: VITALS: [id number](kg) 08/18 08:25----69--98.2--.3 08/18 07:3436.7--[id number] 24 Hr Tmax: 36.7 at 08/18 07:34 36 Hr Tmax: 36.7 at 08/18 07:34 Vital Signs are the last 5 in the past 48 hours. Weights display the last 5 within 7 days. Initial Wt: 08/18 102.3 kg 225 lb Current Wt: 08/18 102.3 kg 225 lb GENERAL: HEENT: CARDIOVASCULAR: RESPIRATORY: ABDOMEN: EXREMETIES: NEUROLOGICAL: PSYCHIATRIC: LABS: No 36hr Lab Data DIAGNOSTICS: IMPRESSION: PLAN: History and Physical Update I have examined the patient; reviewed the H&P and there are no changes to the H&P unless noted below. Future Scheduled Tests Laboratory* Prostate Specific Antigen 07/31/23 * Complete Blood Count 07/31/23 * Lipid Profile 07/31/23 * Complete Metabolic Panel 07/31/23 [facility] 01-22-2024 Hospital Discharge instructions Patient Education 08/18/2023 08:52:50 Helicobacter Pylori Antibodies Test Helicobacter Pylori Antibodies Test Why am I having this test? This test is used to check for a type of bacteria called Helicobacter pylori (H. pylori). H. pylorican be found in the cells that line the stomach. Having high levels of H. pylori in your stomach puts you at risk for: Stomach ulcers and small bowel ulcers. Long-term (chronic) inflammation of the lining of the stomach. Ulcers in the part of the body that moves food from the mouth to the stomach (esophagus). Stomach cancer if the infection is not treated. Most people with H. pylori in their stomach have no symptoms. Your health care provider may ask youto have this test if you have symptoms of a stomach ulcer or small bowel ulcer, such as stomach pain before or after eating, heartburn, or nausea after eating. What is being tested? This test checks your blood for antibodies to the H. pylori bacteria. Antibodies are proteins made by your immune system to fight germs and infection. The test checks for antibodies that the immune system produces in response to infection with H. pylori. What kind of sample is taken? A blood sample is required for this test. It is usually collected by inserting a needle into a blood vessel or by sticking a finger with a small needle. Tell a health care provider about: All medicines you are taking, including vitamins, herbs, eye drops, creams, and avtx-ayq-iypnynr medicines. How are the results reported? Your test results will be reported as values that are categorized as positive, negative, or equivocal. Equivocal means that your results are neither positive nor negative. Your health care provider will compare your results to normal ranges that were established after testing a large group of people (reference ranges). Reference ranges may vary among labs and hospitals. For this test, common reference ranges for the two types of antibodies that may be tested are: IgG antibodies: ?Less than 0.75 units/mL. This is negative. ?Greater than or equal to 1 unit/mL. This is positive. ?0.75 0.99 units/mL. This is equivocal. IgM antibodies: ?Less than or equal to 30 units/mL. This is negative. ?Greater than or equal to 40 units/mL. This is positive. ?30.01 39.99 units/mL. This is equivocal. What do the results mean? Test results that are higher than normal, or positive, may indicate various health conditions, suchas: Short-term or long-term irritation of the stomach lining (gastritis). Small bowel ulcer. Stomach ulcer. Stomach cancer. Talk with your health care provider about what your results mean. Questions to ask your health care provider Ask your health care provider, or the department that is doing the test: When will my results be ready? How will I get my results? What are my treatment options? What other tests do I need? What are my next steps? Summary This test is used to check for a type of bacteria called Helicobacter pylori (H. pylori). Having high levels of H. pylori in your stomach puts you at risk for ulcers in the gastrointestinal tract or stomach cancer. This test checks your blood for antibodies to the H. pylori bacteria. Most people with H. pylori in their stomach have no symptoms. Your health care provider may ask youto have this test if you have symptoms of a stomach ulcer or small bowel ulcer, such as stomach pain before or after eating, heartburn, or nausea after eating. Talk with your health care provider about what your results mean. This information is not intended to replace advice given to you by your health care provider. Make sure you discuss any questions you have with your health care provider. Document Released: 08/07/2005 Document Revised: 06/26/2018 Document Reviewed: 02/24/2018 [employer] Patient Education 2020 [employer] 08/18/2023 08:52:39 Esophagogastroduodenoscopy, Care After ([id number]) Esophagogastroduodenoscopy, Care After Refer to this sheet in the next few weeks. These instructions provide you with information about caring for yourself after your procedure. Your health care provider may also give you more specific instructions. Your treatment has been planned according to current medical practices, but problems sometimes occur. Call your health care provider if you have any problems or questions after your procedure. What can I expect after the procedure? After the procedure, it is common to have: A sore throat. Nausea. Bloating. Dizziness. Fatigue. Follow these instructions at home: Do not eat or drink anything until the numbing medicine (local anesthetic) has worn off and your gag reflex has returned. You will know that the local anesthetic has worn off when you can swallow comfortably. Do not drive for 24 hours if you received a medicine to help you relax (sedative). If your health care provider took a tissue sample for testing during the procedure, make sure to get your test results. This is your responsibility. Ask your health care provider or the department performing the test when your results will be ready. Keep all follow-up visits as told by your health care provider. This is important. Contact a health care provider if: You cannot stop coughing. You are not urinating. You are urinating less than usual. Get help right away if: You have trouble swallowing. You cannot eat or drink. You have throat or chest pain that gets worse. You are dizzy or light-headed. You faint. You have nausea or vomiting. You have chills. You have a fever. You have severe abdominal pain. You have black, tarry, or bloody stools. This information is not intended to replace advice given to you by your health care provider. Make sure you discuss any questions you have with your health care provider. Document Released: 06/30/2013 Document Revised: 12/19/2016 Document Reviewed: 06/06/2016 [employer] Interactive Patient Education 2019 [employer] 08/18/2023 08:52:28 Monitored Anesthesia Care, Care After Monitored Anesthesia Care, Care After These instructions provide you with information about caring for yourself after your procedure. Your health care provider may also give you more specific instructions. Your treatment has been plannedaccording to current medical practices, but problems sometimes occur. Call your health care provider if you have any problems or questions after your procedure. What can I expect after the procedure? After your procedure, you may: Feel sleepy for several hours. Feel clumsy and have poor balance for several hours. Feel forgetful about what happened after the procedure. Have poor judgment for several hours. Feel nauseous or vomit. Have a sore throat if you had a breathing tube during the procedure. Follow these instructions at home: For at least 24 hours after the procedure: Have a responsible adult stay with you. It is important to have someone help care for you until youare awake and alert. Rest as needed. Do not: ?Participate in activities in which you could fall or become injured. ?Drive. ?Use heavy machinery. ?Drink alcohol. ?Take sleeping pills or medicines that cause drowsiness. ?Make important decisions or sign legal documents. ?Take care of children on your own. Eating and drinking Follow the diet that is recommended by your health care provider. If you vomit, drink water, juice, or soup when you can drink without vomiting. Make sure you have little or no nausea before eating solid foods. General instructions Take tzen-glo-mxcpfxc and prescription medicines only as told by your health care provider. If you have sleep apnea, surgery and certain medicines can increase your risk for breathing problems. Follow instructions from your health care provider about wearing your sleep device: ?Anytime you are sleeping, including during daytime naps. ?While taking prescription pain medicines, sleeping medicines, or medicines that make you drowsy. If you smoke, do not smoke without supervision. Keep all follow-up visits as told by your health care provider. This is important. Contact a health care provider if: You keep feeling nauseous or you keep vomiting. You feel light-headed. You develop a rash. You have a fever. Get help right away if: You have trouble breathing. Summary For several hours after your procedure, you may feel sleepy and have poor judgment. Have a responsible adult stay with you for at least 24 hours or until you are awake and alert. This information is not intended to replace advice given to you by your health care provider. Make sure you discuss any questions you have with your health care provider. Document Released: 11/03/2016 Document Revised: 10/12/2018 Document Reviewed: 11/03/2016 [employer] Patient Education 2020 [employer]. Follow Up Care 08/08/2023 14:15:20 With:NANCY PORRAS MD Address: [address] [place] [address]- [phone] When: Unknown Comments:CALL DR PORRAS WITH ANY QUESTIONS OR CONCERNS. GO TO THE EMERGENCY ROOM WITH ANY URGENT CONCERNS. [facility] 01-22-2024 Note Discharge Instructions Thank you for allowing [facility] to assist you with your healthcare needs. The following is importantdischarge information regarding your hospital visit. Your Care Team MRATHA DEJESUS APRN-GRANITE CUTTER APPRENTICE DR NANCY PORRAS Allergies seasonal enviromental (typical) Medications Please ask your primary doctor or pharmacist before taking any other medication not listed, including over the counter drugs, herbal medications, vitamins and or supplements as they may interact withyour home medications. What How Much When Why Instructions Last Dose Unchanged aspirin (aspirin 81 mg oral delayed releasetablet) 1 tab(s) by mouth Every day Well adult exam Duration: 90 Days Unchanged azelastine nasal (azelastine 137 mcg/ inh (0.1%) nasal spray) 2 spray(s) in the nose Two (2) times a day Seasonal allergies Duration: 30 Days Unchanged cetirizine (Zyrtec 10 mg oral tablet) 1 tab(s) by mouth Once a day as needed for allergies Unchanged ketotifen ophthalmic (ketotifen 0.025% ophthalmic solution) 1 Drops Both eyes Every 12 hours Duration: 30 Days Unchanged meloxicam (meloxicam 15 mg oral tablet) Unchanged Misc Medication (Allergy shots) Every other week Unchanged pantoprazole (pantoprazole 40 mg oral enteric coated tablet) 1 tab(s) by mouth Once a day GERD (gastroesophageal reflux disease) Duration: 90 Days Please take this list to your next doctor s visit. Bring all medications you take, including over the counter medications, herbals and other supplements with you to your doctor s visit. Patients and families are reminded to discard old lists and to update any records with all medication providers or retail pharmacies. Education Materials Helicobacter Pylori Antibodies Test Why am I having this test? This test is used to check for a type of bacteria called Helicobacter pylori (H. pylori). H. pylorican be found in the cells that line the stomach. Having high levels of H. pylori in your stomach puts you at risk for: Stomach ulcers and small bowel ulcers. Long-term (chronic) inflammation of the lining of the stomach. Ulcers in the part of the body that moves food from the mouth to the stomach (esophagus). Stomach cancer if the infection is not treated. Most people with H. pylori in their stomach have no symptoms. Your health care provider may ask youto have this test if you have symptoms of a stomach ulcer or small bowel ulcer, such as stomach pain before or after eating, heartburn, or nausea after eating. What is being tested? This test checks your blood for antibodies to the H. pylori bacteria. Antibodies are proteins made by your immune system to fight germs and infection. The test checks for antibodies that the immune system produces in response to infection with H. pylori. What kind of sample is taken? A blood sample is required for this test. It is usually collected by inserting a needle into a blood vessel or by sticking a finger with a small needle. Tell a health care provider about: All medicines you are taking, including vitamins, herbs, eye drops, creams, and ykiz-lyc-yxxeizc medicines. How are the results reported? Your test results will be reported as values that are categorized as positive, negative, or equivocal. Equivocal means that your results are neither positive nor negative. Your health care provider will compare your results to normal ranges that were established after testing a large group of people (reference ranges). Reference ranges may vary among labs and hospitals. For this test, common reference ranges for the two types of antibodies that may be tested are: IgG antibodies: ? Less than 0.75 units/mL. This is negative. ? Greater than or equal to 1 unit/mL. This is positive. ? 0.75 0.99 units/mL. This is equivocal. IgM antibodies: ? Less than or equal to 30 units/mL. This is negative. ? Greater than or equal to 40 units/mL. This is positive. ? 30.01 39.99 units/mL. This is equivocal. What do the results mean? Test results that are higher than normal, or positive, may indicate various health conditions, suchas: Short-term or long-term irritation of the stomach lining (gastritis). Small bowel ulcer. Stomach ulcer. Stomach cancer. Talk with your health care provider about what your results mean. Questions to ask your health care provider Ask your health care provider, or the department that is doing the test: When will my results be ready? How will I get my results? What are my treatment options? What other tests do I need? What are my next steps? Summary This test is used to check for a type of bacteria called Helicobacter pylori (H. pylori). Having high levels of H. pylori in your stomach puts you at risk for ulcers in the gastrointestinal tract or stomach cancer. This test checks your blood for antibodies to the H. pylori bacteria. Most people with H. pylori in their stomach have no symptoms. Your health care provider may ask youto have this test if you have symptoms of a stomach ulcer or small bowel ulcer, such as stomach pain before or after eating, heartburn, or nausea after eating. Talk with your health care provider about what your results mean. This information is not intended to replace advice given to you by your health care provider. Make sure you discuss any questions you have with your health care provider. Document Released: 08/07/2005 Document Revised: 06/26/2018 Document Reviewed: 02/24/2018 [employer] Patient Education 2020 [employer]. Esophagogastroduodenoscopy, Care After Refer to this sheet in the next few weeks. These instructions provide you with information about caring for yourself after your procedure. Your health care provider may also give you more specific instructions. Your treatment has been planned according to current medical practices, but problems sometimes occur. Call your health care provider if you have any problems or questions after your procedure. What can I expect after the procedure? After the procedure, it is common to have: A sore throat. Nausea. Bloating. Dizziness. Fatigue. Follow these instructions at home: Do not eat or drink anything until the numbing medicine (local anesthetic) has worn off and your gag reflex has returned. You will know that the local anesthetic has worn off when you can swallow comfortably. Do not drive for 24 hours if you received a medicine to help you relax (sedative). If your health care provider took a tissue sample for testing during the procedure, make sure to get your test results. This is your responsibility. Ask your health care provider or the department performing the test when your results will be ready. Keep all follow-up visits as told by your health care provider. This is important. Contact a health care provider if: You cannot stop coughing. You are not urinating. You are urinating less than usual. Get help right away if: You have trouble swallowing. You cannot eat or drink. You have throat or chest pain that gets worse. You are dizzy or light-headed. You faint. You have nausea or vomiting. You have chills. You have a fever. You have severe abdominal pain. You have black, tarry, or bloody stools. This information is not intended to replace advice given to you by your health care provider. Make sure you discuss any questions you have with your health care provider. Document Released: 06/30/2013 Document Revised: 12/19/2016 Document Reviewed: 06/06/2016 [employer]ion[employer] Interactive Patient Education 2019 [place]. Monitored Anesthesia Care, Care After These instructions provide you with information about caring for yourself after your procedure. Your health care provider may also give you more specific instructions. Your treatment has been plannedaccording to current medical practices, but problems sometimes occur. Call your health care provider if you have any problems or questions after your procedure. What can I expect after the procedure? After your procedure, you may: Feel sleepy for several hours. Feel clumsy and have poor balance for several hours. Feel forgetful about what happened after the procedure. Have poor judgment for several hours. Feel nauseous or vomit. Have a sore throat if you had a breathing tube during the procedure. Follow these instructions at home: For at least 24 hours after the procedure: Have a responsible adult stay with you. It is important to have someone help care for you until youare awake and alert. Rest as needed. Do not: ? Participate in activities in which you could fall or become injured. ? Drive. ? Use heavy machinery. ? Drink alcohol. ? Take sleeping pills or medicines that cause drowsiness. ? Make important decisions or sign legal documents. ? Take care of children on your own. Eating and drinking Follow the diet that is recommended by your health care provider. If you vomit, drink water, juice, or soup when you can drink without vomiting. Make sure you have little or no nausea before eating solid foods. General instructions Take kdij-yxf-leaymzf and prescription medicines only as told by your health care provider. If you have sleep apnea, surgery and certain medicines can increase your risk for breathing problems. Follow instructions from your health care provider about wearing your sleep device: ? Anytime you are sleeping, including during daytime naps. ? While taking prescription pain medicines, sleeping medicines, or medicines that make you drowsy. If you smoke, do not smoke without supervision. Keep all follow-up visits as told by your health care provider. This is important. Contact a health care provider if: You keep feeling nauseous or you keep vomiting. You feel light-headed. You develop a rash. You have a fever. Get help right away if: You have trouble breathing. Summary For several hours after your procedure, you may feel sleepy and have poor judgment. Have a responsible adult stay with you for at least 24 hours or until you are awake and alert. This information is not intended to replace advice given to you by your health care provider. Make sure you discuss any questions you have with your health care provider. Document Released: 11/03/2016 Document Revised: 10/12/2018 Document Reviewed: 11/03/2016 [employer]ionTag Patient Education 2020 [place]. Additional Information VACCINATE! IT SAVES LIVES! Members of the community who have not yet received the COVID-19 vaccine and would like to receive it can visit one of [facility] vaccine clinics. There are many vaccine clinic locations within the [facility]. For locations and available times, please visit [email or web address].[place].gov/. It is important to note that some COVID mobile vaccine clinics are held outdoors and may be canceled in rainy or stormy conditions. To learn more about pediatric vaccinations (ages 5-11), we invite you to visit the [facility] webpage. [email or web address]/[email or web address] [email or web address] learn more about the COVID-19 vaccine, we invite you to visit the CDC website for a list of frequently asked questions.https://www.cdc.gov/coronavirus/2019-ncov/vaccines/faq.html [facility] Patient Portal Access Instructions: Stay connected with your healthcare team and access your personal medical information anytime with the [facility] Patient Portal. Please follow the directions below to create your [facility] account: 1.Access the email account you provided upon registration to the hospital/physician office.2.Look for an invitation email from [facility].3.Open the email and access the invitation link: [facility].4.Fill in the required luevano to create your account. To access your account, visit [email or web address]. Click the blue button labeled Access Patient Portal and then log in with the username and password that you created in the steps above. You will be able to view your test results, lab results, a summary of your visits, upcoming appointments and more. There is also a convenient messaging option where you can send secure messages to your p rovider. In addition, you will have the ability to download any documents or summaries to your computer and/or send the information securely to a physician. Remember that your healthcare information is confidential, so carefully consider who you will allowto register on the [email or web address] Patient Portal for access to your information. You can also access the [facility] Patient Portal on the [facility] slade. Simply click on Patient Portal and then log into your account. If you would like to receive a full copy of your medical records, please contact the [facility] Medical Records Department by calling [phone], Friday through Friday between 8 a.m. and 4:30 p.m. HOW TO SAFELY DISPOSE OF PRESCRIPTION MEDICATIONS Please use one of the following methods to safely dispose of your unused medications. 1.Use a drug disposal kit: the drug disposal pouch allows you to safely discard your old and unuseddrugs. Ask your nurse to give you one when you are discharged.2.Visit a local take-back location: Many local pharmacies and police departments have programs that collect old and unwanted prescriptiondrugs. Call your local pharmacy or go to http://bit.[employer]/4Y7Vh5h to find one close to you.3.Make use of household items: Use cat litter or old coffee grounds to dispose medications if other options arenot available. Mix your drugs with these household products, seal them in an airtight container andthrow it into the garbage. Call [facility]: [phone] to be sure your drugs can be disposed of in this way. Some medicines may require a different approach.4.Never flush your medications down the toilet. IF YOU HAVE BEEN PRESCRIBED AN OPIOID FOR PAIN If you have been prescribed an opioid (such as hydrocodone, oxycodone or morphine), it is critical to understand the possible side effects and risks of opioid pain medications. Even when taken as directed, opioids can have several side effects including: Tolerance, meaning you might need to take more of a medication for the same pain relief. Nausea, vomiting and/or constipation. Sleepiness, dizziness, dry mouth, confusion, depression or itching. Physical dependence, meaning you have withdrawal symptoms when a medication is stopped, can develop within a few days. KNOW YOUR RESPONSIBILITIES It is important to know exactly how much and how often to take the opioid pain medications you are prescribed. Never take opioids in higher amounts or more often than prescribed. Do not combine opioids with alcohol or other drugs that cause drowsiness, such as benzodiazepines, also known as benzos, including diazepam and alprazolam, muscle relaxants or sleep aids. Never sell or share prescription opioids. This is illegal. Store opioids in a secure place and out of reach of others (including children, family, friends and visitors). The last page of this document has been signed and retained as a CHART COPY. Signatures Patient Education Materials Helicobacter Pylori Antibodies Test Esophagogastroduodenoscopy, Care After (57455) Monitored Anesthesia Care, Care After Medication Leaflets My discharge plan and instructions have been reviewed and explained to me and IFAHAD JOHN J understand my current condition and have read and understand these discharge instructions. I have received a written copy of the plan/instructions. If I have questions, I am aware that I should contact my doctor. Patient/Junk Removal Specialist Signature: Date/Time: Relationship to Patient: Witness Name/Signature: Date/Time: [facility]01-22-2024 Anesthesiology Consult note Patient: CAROLYN VÁSQUEZ Age: 48 years Sex: Male : 1975 Associated Diagnoses: None Author: LUCRECIA BALDERRAMA Assessment Postanesthesia assessment Vitals: Vital signs from flowsheet : Vital Signs 08/18/2023 8:40 EST Heart Rate Monitored 76 bpm bpm Respiratory Rate - Anes 14 br/min br/min Systolic Blood Pressure Non-Invasive 113 mmHg mmHg Diastolic Blood Pressure Non-Invasive 84 mmHg mmHg 08/18/2023 8:37 EST Systolic Blood Pressure Non-Invasive 102 mmHg mmHg Diastolic Blood Pressure Non-Invasive 79 mmHg mmHg 08/18/2023 8:35 EST Heart Rate Monitored 64 bpm bpm Respiratory Rate - Anes 11 br/min br/min 08/18/2023 8:30 EST Heart Rate Monitored 65 bpm bpm Respiratory Rate - Anes 11 br/min br/min Systolic Blood Pressure Non-Invasive 124 mmHg mmHg Diastolic Blood Pressure Non-Invasive 78 mmHg mmHg 08/18/2023 8:25 EST Heart Rate Monitored 69 bpm bpm Respiratory Rate - Anes 14 br/min br/min Systolic Blood Pressure Non-Invasive 116 mmHg mmHg Diastolic Blood Pressure Non-Invasive 90 mmHg mmHg 08/18/2023 8:22 EST Systolic Blood Pressure Non-Invasive 115 mmHg mmHg Diastolic Blood Pressure Non-Invasive 85 mmHg mmHg 08/18/2023 7:34 EST Temperature Temporal Artery 36.7 DegC Apical Heart Rate 71 bpm Respiratory Rate 14 br/min Systolic Blood Pressure Non-Invasive 117 mmHg Diastolic Blood Pressure Non-Invasive 93 mmHg HI , Measurements from flowsheet . Mental status: alert & oriented x 4. Respiratory function: respirations are non-labored. Respiratory support: none. CV function: Normal rate. Cardiovascular support: none. Pain. Nausea status: see nursing documentation of medications. Postoperative hydration status: within normal limits. Digitally Signed by LUCRECIA BALDERRAMA on 08/18/2023 08:44 AM [facility]01-22-2024 Note CHELSEA ADMISSION HISTORY AND PHYSICIAL CHIEF COMPLAINT: HISTORY OF PRESENT ILLNESS: REVIEW OF SYSTEMS: ACTIVE PROBLEMS: (13) Colon cancer screening (378475516) Cough (10398669) GERD (gastroesophageal reflux disease) (170505451) Hypersomnolent (504424893) Itchy eyes (425908016) Low back pain, episodic (787772593) Obesity (1048985912) Periodic limb movements of sleep (7893163113) Screening for prostate cancer (416926663) Seasonal allergies (0244744037) Snoring (306716576) Somatic dysfunction of pelvic region (7710738713) Well adult exam (700845681) MEDICATIONS: Active Inpt Meds: None Active PRN Meds: None One Time Meds: (Completed) midazolam (Versed (ANES)) IV Push, Once, Stop: 08/18/23 8:29:00 EST Active IV Meds: Lactated Ringers Infusion 1,000 mL (LR 1,000 mL) Start: 08/18/23 7:33:00 EST, Rate: 50 mL/hr, 08/18/23 7:33:00 EST ALLERGIES: (1) seasonal enviromental FAMILY HISTORY: SOCIAL HISTORY: PHYSICAL EXAM: VITALS: JdjakrFxwzTSIblpfVVKkX7FMB1HqdpPb(kg) 08/18 08:25----69--98.2--02.3 08/18 07:3436.7--508116GS 24 Hr Tmax: 36.7 at 08/18 07:34 36 Hr Tmax: 36.7 at 08/18 07:34 Vital Signs are the last 5 in the past 48 hours. Weights display the last 5 within 7 days. Initial Wt: 08/18 102.3 kg 225 lb Current Wt: 08/18 102.3 kg 225 lb GENERAL: HEENT: CARDIOVASCULAR: RESPIRATORY: ABDOMEN: EXREMETIES: NEUROLOGICAL: PSYCHIATRIC: LABS: No 36hr Lab Data DIAGNOSTICS: IMPRESSION: PLAN: History and Physical Update I have examined the patient; reviewed the H&P and there are no changes to the H&P unless noted below. Digitally Signed by NANCY PORRAS MD on 08/18/2023 08:35 AM [facility]01-22-2024 Anesthesiology Consult note Patient: CAROLYN VÁSQUEZ Age: 48 years Sex: Male : 1975 Associated Diagnoses: None Author: LUCRECIA BALDERRAMA APRN-VICE PRESIDENT REGULATORY Preoperative Information Time of last food or liquid consumption: 08/18/2023 00:00:00 Anesthesia history Patient's history: negative. Family's history: negative. Health Status Allergies: Allergic Reactions (Selected) Severity Not Documented Seasonal enviromental- Typical., Allergies (1) ActiveReaction seasonal enviromentaltypical Current medications: (Selected) Inpatient Medications Ordered LR 1,000 mL: 50 mL/hr, Intravenous Prescriptions Prescribed aspirin 81 mg oral delayed release tablet: 81 mg, 1 tab(s), Oral, Daily, for 90 day(s), 90 tab(s), 3 Refill(s) azelastine 137 mcg/inh (0.1%) nasal spray: 2 spray(s), Nasal, BID, for 30 day(s), 1 EA, 5 Refill(s) ketotifen 0.025% ophthalmic solution: 1 drop(s), Eyes, both, q12h, for 30 day(s), 7.5 mL, 5 Refill(s) pantoprazole 40 mg oral enteric coated tablet: 40 mg, 1 tab(s), Oral, qDay, for 90 day(s), 90 tab(s), 0 Refill(s) Documented Medications Documented Allergy shots: every other week, 0 Refill(s) Zyrtec 10 mg oral tablet: 10 mg, 1 tab(s), Oral, qDay, PRN: allergies, 0 Refill(s) meloxicam 15 mg oral tablet: 0 Refill(s), Medications (1) Active Scheduled: (0) Continuous: (1) Lactated Ringers 1,000 mL 1,000 mL, Intravenous, 50 mL/hr PRN: (0) Problem list: Medical Cough / SNOMED CT 41501227 / Confirmed GERD (gastroesophageal reflux disease) / SNOMED CT 962358204 / Confirmed Hypersomnolent / SNOMED CT 885394140 / Confirmed Itchy eyes / SNOMED CT 643686200 / Confirmed Low back pain, episodic / SNOMED CT 232226181 / Confirmed Obesity / SNOMED CT 8039626049 / Confirmed Well adult exam / SNOMED CT 578025785 / Confirmed Colon cancer screening / SNOMED CT 345308795 / Confirmed Screening for prostate cancer / SNOMED CT 287990819 / Confirmed Periodic limb movements of sleep / SNOMED CT 0057864406 / Confirmed Seasonal allergies / SNOMED CT 6787525409 / Confirmed Snoring / SNOMED CT 403468144 / Confirmed Somatic dysfunction of pelvic region / SNOMED CT 6736738155 / Confirmed, Active Problems (13) Colon cancer screening Cough GERD (gastroesophageal reflux disease) Hypersomnolent Itchy eyes Low back pain, episodic Obesity Periodic limb movements of sleep Screening for prostate cancer Seasonal allergies Snoring Somatic dysfunction of pelvic region Well adult exam Histories Past Medical History: No active or resolved past medical history items have been selected or recorded. Family History: Heart disease Mother Esophageal reflux Father Diabetes Mother Procedure history: Electrocardiogram ([id number]) on 12/15/2021 at 46 Years. Comments: 12/19/2021 15:19 [facility] Kalyani Sheets [employer] [facility] Cardiac catheterization (29970059) on 12/15/2021 at 46 Years. Comments: 12/19/2021 15:19 [facility] Kalyani Sheets LPN [facility] Echocardiogram ([id number]) on 12/15/2021 at 46 Years. Comments: 12/19/2021 15:19 [facility] Kalyani Sheets [employer] [facility] CT angiography of chest with contrast ([id number]) on 12/15/2021 at 46 Years. Comments: [facility] CXR - Chest X-ray ([id number]) on 12/14/2021 at 46 Years. Comments: 12/19/2021 15:18 [facility] Kalyani Sheets [employer] [facility] Electrocardiogram ([id number]) on 12/14/2021 at 46 Years. Comments: 12/19/2021 15:18 [facility] Kalyani Sheets [employer] [facility] Appendectomy (311879553) in the month of 07/2018 at 43 Years. Left arm (040743042) in 1991 at 17 Years. Comments: 09/07/2019 8:52 Yi Russell LPN plates and screws removed Left arm (817872588) in 1990 at 16 Years. Comments: 09/07/2019 8:53 Yi Russell LPN left arm fracture and repair Tonsillectomy (630862679). Torn meniscus (162134144). Comments: 02/28/2023 7:43 EDT - Kalyani Sheets LPN L knee arthroscopy Esophagogastroduodenoscopy (742554945). Social History Social & Psychosocial Habits Alcohol 08/18/2023 Frequency: 1-2 times per month Comment: occasional - 09/07/2019 08:54 - Yi Young RN Substance Abuse 08/18/2023 Use: Never Tobacco 08/18/2023 Tobacco Use: Former smoker, quit more Comment: no smoke exposure - 09/08/2019 08:54 - Alicia Amador RN; Quit in 1999 - 07/05/2022 11:39 -Kalyani Sheets LPN Home/Environment 08/18/2023 Primary Social Services Manager: self Nutrition/Health 08/18/2023 Type of diet: Regular Appetite Good Eating Difficulties None Caffeine intake amount: 1 serving daily carbonated beverage . Physical Examination Vital Signs 08/18/2023 7:34 EST Temperature Temporal Artery 36.7 DegC Apical Heart Rate 71 bpm Respiratory Rate 14 br/min Systolic Blood Pressure Non-Invasive 117 mmHg Diastolic Blood Pressure Non-Invasive 93 mmHg SC Vital Signs(last 24 hrs) Last Charted WWW108 mmHg (AUG 18 07:34) DBPH 93mmHg (AUG 18 07:34) Measurements from flowsheet : Measurements 08/18/2023 7:34 EST Height 172.72 cm Admission Weight 102.27 kg Marshall Body Weight 68.40 kg Admission Body Mass Index 34.28 m2 General: Alert and oriented. Airway: Normal temporomandibular joint mobility, Normal mouth, Normal neck range of motion. Mallampati classification: III (soft palate, base of uvula visible). Dentition Evaluation: Denies loose/chipped teeth. Respiratory: Respirations are non-labored. Cardiovascular: Normal rate. Neurologic: Alert, Oriented. Review / Management Results review: No qualifying data available , Lab results 08/18/2023 7:50 EST Lactated Ringers Injection Begin Bag 1,000 mL mL 08/18/2023 7:49 EST Hand Right 08/18/2023 22 gauge Peripheral IV Activity: Insert new site Peripheral IV Site Condition: No complications Peripheral IV Number of Attempts: 1 08/18/2023 7:34 EST Height 172.72 cm Admission Weight 102.27 kg Marshall Body Weight 68.40 kg Admission Body Mass Index 34.28 m2 Temperature Temporal Artery 36.7 DegC Apical Heart Rate 71 bpm Respiratory Rate 14 br/min Systolic Blood Pressure Non-Invasive 117 mmHg Diastolic Blood Pressure Non-Invasive 93 mmHg HI Heart Rhythm Regular Respirations Unlabored Respiratory Pattern Regular All Lobes Breath Sounds Clear Oxygen Therapy Room air Oxygen Saturation 94 % Abdomen Description Non-distended, Soft Swallowing Disorder None Bowel Sounds All Quadrants Present Urinary Elimination Voiding, no difficulties Skin Temperature Warm Skin Description Ewen, Normal for ethnicity, Dry Skin Moisture General Dry IV Present Present Neurological Symptoms Patient denies Characteristics of Speech Clear Level of Consciousness Alert Strength All Extremities Strong Tone All Extremities Normal Affect/Behavior Appropriate Orientation Oriented x 4 Allergies Yes Topper Packer On Yes Consent Form Signed Yes Patient Dressed In Hospital gown Pre-op Preparation Glasses removed Obstructive Sleep Apnea Assess Completed Yes Orientation Assessment Oriented x 4 Assistive Device None Positioning Repositions self Activity Status ADL Awake Standard Safety ID band on, Call device within reach, Bed in low position, Wheels locked, Upper/Half-Length side-rails up, Visitor at bedside Implants Verified Yes Pacemaker/AICD Verified Yes Last Fluid Intake 08/17/2023 21:00 Last Food Intake 08/17/2023 21:00 Last Void 08/18/2023 7:35 08/18/2023 7:31 EST Designated Person #1 [phone] Designated Person #1 Relationship Spouse Privacy Restrictions Requested None Status N/A Sensory Deficits None Sleep Apnea Snore No Sleep Apnea Tired No Sleep Apnea Obstruction No Sleep Apnea Pressure No Sleep Apnea BMI No Sleep Apnea Age Yes Sleep Apnea Neck No Sleep Apnea Gender Yes Sleep Apnea Score 2 Diagnosed With Sleep Apnea No Advanced Directives No - refuses information Infectious Disease Symptoms Patient states no symptoms Infectious Disease Recent Exposure No Alcohol and Drug Use No Employee of Institutional Living No Health Care Employee No History of Exposure to TB No History of Positive Chest X-Ray for TB No History of Positive TB Skin Test No Homeless No Known Immunosuppression No Recent Immigrant No Resident of Institutional Living No Bloody Sputum No Fatigue No Fever No Loss of Appetite No Night Sweats No Persistent Cough > 3 Weeks No Weight Loss No Barriers to Learning None evident Teaching Method Explanation Preferred Spoken Language Korean Preferred Written Language Korean Teaching Evaluation No further teaching needed Safety Brochure Information Reviewed Unable to complete Amanuel Sorto Video Viewed No Information Given by Unable to obtain Patient's Current Physicians [place] Discharge To, Anticipated Home independently Prev Test Positive/Diagnosis w/COVID-19 No Current Quarantine/Isolated any Illness No Any Contact with Sick Animals/Birds No Traveled Anywhere in Last 30 Days No Lost Weight Unintentionally Recently No Eat Poorly Due to Decreased Appetite No Total MST Score 0 N/A Personal Devices, Patient Valuables Glasses Admission Note-Nursing Same Day Patient History . Assessment and Plan [place] [employer]esthesi[employer] (ASA) physical status classification: Class II. Anesthetic Preoperative Plan Anesthetic technique: MAC. Informed consent: signed by patient. Digitally Signed by LUCRECIA BALDERRAMA on 08/18/2023 08:03 AM [facility]01-04-2023 Note ORIGINAL EXAMINATION: MRI OF THE LEFT KNEE WITHOUT CONTRAST07/31/2022 9:04 am TECHNIQUE: Multiplanar multisequence MRI of the left knee was performed without the administration of intravenous contrast. COMPARISON: None HISTORY: ORDERING SYSTEM PROVIDED HISTORY: Reason for Exam: SPRAIN OF OTHER SPECIFIED PARTS OF LEFT KNEE. Pain. FINDINGS: MUSCLES, TENDONS, AND LIGAMENTS: The anterior cruciate ligament is intact. The posterior cruciate ligament is intact. The medial collateral ligament is intact. The lateral collateral ligament complex is intact. The popliteus and biceps femoris tendons, iliotibial band, and extensor mechanism are intact. MENISCI: Horizontal longitudinal tear noted of the body segment of medial meniscus, reaching the inferior articular surface. Superimposed inner free edge fraying is also present in this region the lateral meniscus is intact. OSSEOUS STRUCTURES AND JOINTS: No fracture or dislocation is evident. No visualized marrow replacing osseous lesions. Low-grade cartilage thinning is present of the weight-bearing medial femoral condyle. Low-grade cartilage thinning is present the central weight-bearing lateral femoral condyle. Low-grade cartilage thinning is noted of superior and mid aspects of the median patellar ridge and medial patellar facet. There is high-grade cartilage thinning of the inferior aspect of the median patellar ridge and lateral patellar facet. Intermediate grade cartilage thinning is noted of the inferior aspect of medial patellar facet. No significant joint effusion is evident. SOFT TISSUES: No significant volume of fluid is evident in a popliteal cyst. Prepatellar subcutaneous edema is noted to a mild degree. IMPRESSION: 1. Horizontal longitudinal tear of body segment medial meniscus superimposed upon inner free edge fraying. 2. Mild tricompartmental osteoarthrosis, most pronounced of the patellofemoral compartment. Interpreted by: Parish Hurley DO Preliminary Report By: Parish Hurley DO Electronically signed By Parish Hurley DO Dictated Date: 07/31/2022 12:03:18 PM Prelim Date: 07/31/2022 12:29:34 PM Sign Date: 07/31/2022 12:29:34 PM Ordering Provider: [facility]01-04-2023 Note ORIGINAL EXAMINATION: MRI OF THE LEFT KNEE WITHOUT CONTRAST07/31/2022 9:04 am TECHNIQUE: Multiplanar multisequence MRI of the left knee was performed without the administration of intravenous contrast. COMPARISON: None HISTORY: ORDERING SYSTEM PROVIDED HISTORY: Reason for Exam: SPRAIN OF OTHER SPECIFIED PARTS OF LEFT KNEE. Pain. FINDINGS: MUSCLES, TENDONS, AND LIGAMENTS: The anterior cruciate ligament is intact. The posterior cruciate ligament is intact. The medial collateral ligament is intact. The lateral collateral ligament complex is intact. The popliteus and biceps femoris tendons, iliotibial band, and extensor mechanism are intact. MENISCI: Horizontal longitudinal tear noted of the body segment of medial meniscus, reaching the inferior articular surface. Superimposed inner free edge fraying is also present in this region the lateral meniscus is intact. OSSEOUS STRUCTURES AND JOINTS: No fracture or dislocation is evident. No visualized marrow replacing osseous lesions. Low-grade cartilage thinning is present of the weight-bearing medial femoral condyle. Low-grade cartilage thinning is present the central weight-bearing lateral femoral condyle. Low-grade cartilage thinning is noted of superior and mid aspects of the median patellar ridge and medial patellar facet. There is high-grade cartilage thinning of the inferior aspect of the median patellar ridge and lateral patellar facet. Intermediate grade cartilage thinning is noted of the inferior aspect of medial patellar facet. No significant joint effusion is evident. SOFT TISSUES: No significant volume of fluid is evident in a popliteal cyst. Prepatellar subcutaneous edema is noted to a mild degree. IMPRESSION: 1. Horizontal longitudinal tear of body segment medial meniscus superimposed upon inner free edge fraying. 2. Mild tricompartmental osteoarthrosis, most pronounced of the patellofemoral compartment. Interpreted by: Parish Hurley DO Preliminary Report By: Parish Hurley DO Electronically signed By Parish Hurley DO Dictated Date: 07/31/2022 12:03:18 PM Prelim Date: 07/31/2022 12:29:34 PM Sign Date: 07/31/2022 12:29:34 PM [facility] + Plan note Future Scheduled Tests Laboratory* Complete Blood Count 12/20/21 [facility] Hospital course Narrative No data available for this section [facility] Hospital Discharge instructions No data available for this section [facility] Progress note No data available for this section [facility] Summary Purpose Family History No Family History Records Found Advance Directives No Advanced Directives Records Found Additional Source Comments Care Team (unrecognized sect ion and content) Care Team Personnel Name: MARTHA DEJESUS Position: P4 Advanced Practice Nurse Med Service: Active Provider Member Role: Primary Care Physician Address: Address: [address] [place] [address] [place] Name: SONJA FATIMA MD Position: [facility] Physician Med Service: Active Provider Member Role: Neurologist Address: Address: [address] [place] [address] Care Team Related Persons Name: AZALIA VÁSQUEZ Address: Home [address] [place], [place] [id number] [place] Address: [facility] [address] [place], [place] [id number] Name: ZITA VÁSQUEZ Care Team Personnel Name: MARTHA DEJESUS Position: P4 Advanced Practice Nurse Member Role: Primary Care Physician Address: Address: [address] [place] [address] Name: SONJA FATIMA MD Position: [facility] Physician Member Role: Neurologist Address: Address: [address] Care Team Related Persons Name: AZALIA VÁSQUEZ Address: Home [address] [place], [place] [id number] Address: Temporary [address] [place], [place] [id number] Name: FAHADSAMARAZITA Patient Care team informatio n (unrecognized section and content) Care Team Personnel Name: MARTHA DEJESUS [employer] APPRENTICE Position: Advanced Technology Engineer Member Role: Primary Care Physician Address: Address: [address] [place], [place] [address] Name: SONJA FATIMA MD Position: [facility] Physician Member Role: Neurologist Address: Address: [address] [facility] [place] [address] Care Team Related Persons Name: FAHADJESSICA FERGUSONCRISTINA Thomas Address: Home [address] [place], [place] [id number] Address: Temporary [address] [place], [place] [id number] Name: ZITA VÁSQUEZ (unrecognized sect ion and content) No Status Records Found INFORMATION SOURCE (unrecogn ized section and content) FOR RECORDS PERTAINING TO PATIENTS WHO ARE OR HAVE BEEN ENROLLED IN A CHEMICAL DEPENDENCY/SUBSTANCEABUSE PROGRAM, SOME INFORMATION MAY BE OMITTED. This clinical summary was aggregated from multiple sources. Caution should be exercised in using it in the provision of clinical care. This summary normalizes information from multiple sources, and as a consequence, information in this document may materially change the coding, format and clinical context of patient data. In addition, data may be omitted in some cases. CLINICAL DECISIONS SHOULD BE BASED ON THE PRIMARY CLINICAL RECORDS. [facility]. provides no warranty or guarantee of the accuracy or completeness of information in this document.
[2023-08-22 12:19] LABS: Hematocrit 44.2 % (40-54); Hemoglobin 14.9 g/dL (13.0-16.5); Mean Corp Hgb Conc 33.7 g/dL (32-36); Mean Corpuscular Hgb 29.6 pg (27.0-32.0); Mean Corpuscular Volume 87.9 fL (80-94); Mean Platelet Vol. 9.2 fl (6.2-12.0); Platelet Count 231 K/mm3 (150-450); RBC Distribution Width CV 12.4 % (11.6-14.6); RBC Distribution Width SD 40.1 fl (35.1-43.9); Red Blood Count 5.03 M/mm3 (4.6-6.2); White Blood Count 6.1 K/mm3 (4.4-11.0)
[2023-08-22 13:15] LABS: ALB/GLOB Ratio 1.3 RATIO (0.9-2.4); AST(SGOT) 16 U/L (15-37); Alanine Aminotransfer ALT/SGPT 33 U/L (16-61); Albumin, Serum 3.7 g/dL (3.2-5.0); Alkaline Phosphatase 46 U/L (45-117); Anion Gap 5 (5-15); BUN 20 mg/dL (7-18); BUN/Creat Ratio 20.6 RATIO (10-20); Calcium,Total 8.8 mg/dL (8.5-10.1); Chloride 109 mmol/L (98-107); Cholesterol 185 mg/dL (200); Creatinine, Serum 0.97 mg/dL (0.70-1.30); EST Glomerular Filtration Rate 87 mL/min (>60); Est Glom Filt Rate - Afr Amer 105 mL/min (>60); Globulin 2.8 g/dL (2.2-4.2); Glucose 107 mg/dL (74-106); High Density Lipoprotein 43 mg/dL; PSA,Total - Annual Screen 0.65 ng/mL (0.00-4.00); Potassium 4.2 mmol/L (3.5-5.1); Protein, Total 6.5 g/dL (6.4-8.2); Sodium Level 137 mmol/L (136-145); Triglycerides 122 mg/dL; Very Low Density Lipoprotein 24 mg/dL (5-40)
== END | disposition home or self-care (01) ==
LOC: BIMLAB 08:03
PROVIDERS: PCP Nurse Practitioner Primary Care; Referring Provider Nurse Practitioner Primary Care; Visit Provider Nurse Practitioner Primary Care
DX: Z00.00 Encounter for general adult medical examination without abnormal findings (principal); Z12.11 Encounter for screening for malignant neoplasm of colon; Z12.5 Encounter for screening for malignant neoplasm of prostate
CPT/HCPCS: 36415; 80053; 80061; 84153; 85027; G0103

== ENCOUNTER → 2024-05-18 | Outpatient (CLI) | payer OTHER, SELFPAY ==
[2024-05-18 12:24] LABS: Hematocrit 44.7 % (40-54); Hemoglobin 15.3 g/dL (13.0-16.5); Mean Corp Hgb Conc 34.2 g/dL (32-36); Mean Corpuscular Hgb 30.1 pg (27.0-32.0); Mean Platelet Vol. 9.1 fl (6.2-12.0); Platelet Count 245 K/mm3 (150-450); RBC Distribution Width CV 12.2 % (11.6-14.6); RBC Distribution Width SD 39.7 fl (35.1-43.9); Red Blood Count 5.08 M/mm3 (4.6-6.2); White Blood Count 5.9 K/mm3 (4.4-11.0)
[2024-05-18 13:00] LABS: ALB/GLOB Ratio 1.3 RATIO (0.9-2.4); AST(SGOT) 14 U/L (15-37); Alanine Aminotransfer ALT/SGPT 27 U/L (16-61); Albumin, Serum 3.9 g/dL (3.2-5.0); Alkaline Phosphatase 46 U/L (45-117); Anion Gap 7 (5-15); BUN 20 mg/dL (7-18); BUN/Creat Ratio 23.3 RATIO (10-20); Calcium,Total 9.1 mg/dL (8.5-10.1); Chloride 107 mmol/L (98-107); Cholesterol 180 mg/dL (200); Creatinine, Serum 0.86 mg/dL (0.70-1.30); EST Glomerular Filtration Rate 100 mL/min (>60); Est Glom Filt Rate - Afr Amer 121 mL/min (>60); Globulin 2.9 g/dL (2.2-4.2); Glucose 104 mg/dL (74-106); High Density Lipoprotein 41 mg/dL; PSA,Total - Annual Screen 0.71 ng/mL (0.00-4.00); Potassium 4.1 mmol/L (3.5-5.1); Protein, Total 6.8 g/dL (6.4-8.2); Sodium Level 137 mmol/L (136-145); Triglycerides 164 mg/dL; Very Low Density Lipoprotein 33 mg/dL (5-40)
== END | disposition home or self-care (01) ==
LOC: BIMLAB 08:33
PROVIDERS: PCP Nurse Practitioner Primary Care; Visit Provider Nurse Practitioner Primary Care
DX: Z00.00 Encounter for general adult medical examination without abnormal findings (principal); Z12.5 Encounter for screening for malignant neoplasm of prostate; Z12.11 Encounter for screening for malignant neoplasm of colon
CPT/HCPCS: 36415; 80053; 80061; 84153; 85027; G0103